=== PATIENT | female | born 1960 | race Caucasian/White ===

== ENCOUNTER 2016-07-03 10:36 | Inpatient (IN) | payer OTHER, MEDICARE ==
[~2016-07-03] VITALS: Ht 160 cm; Wt 69.1 kg
[~2016-07-03 10:36] MED LIST: ALPRAZOLAM1 MG PO; ATROVENT 0.02%2.5 ML INH; ATROVENT HFA 121 PUF INH; AZITHROMYCIN500 MG PO; DOLOPHINE10 MG PO; LABETALOL HYDR300 MG PO; PERCOCET 325 MG1 TAB PO; PREDNISONE10 MG PO; PRILOSEC 20MG C20 MG PO; PROAIR HFA0.09 MG/Ac INH; ZOFRAN ODT4 MG SL
--- NOTE | 2016-07-03 10:44 | NUR ---
PT TO ED FOR +SI THOUGHTS WITH PLAN THAT PT DOES NOT WISH TO DISCLOSE IN TRIAGE. PT DENIES HI. REPORTS "I'M ONLY HERE BECAUSE I PROMISED MY DOCTOR I WOULD COME HERE. I JUST CAN'T DO THIS ANYMORE." PT HAS HISTORY OF DEPRESSION. DOES NOT WANT ANYONE TO KNOW THAT SHE IS HERE.
--- NOTE | 2016-07-03 10:51 | NUR ---
PT TAKEN DIRECTLY BACK TO STRETCHER.
--- NOTE | 2016-07-03 11:00 | NUR ---
DR HALLMAN AT BEDSIDE
--- NOTE | 2016-07-03 11:08 | NUR ---
SECURITY AT BEDSIDE FOR WANDING. PT CHANGED INTO BLUE SCRUBS
--- NOTE | 2016-07-03 11:09 | ED PSYCHIATRIC COMPLAINT ---
History of Present Illness General Chief Complaint: Psychiatric Related Complaint Stated Complaint: +SI,DEPRESSION Source: patient, old records Exam Limitations: no limitations Vital Signs & Intake/Output Vital Signs & Intake/Output Vital Signs Date Time Temp Pulse Resp B/P B/P Pulse O2 O2 Flow FiO2 Mean Ox Delivery Rate 07/04 1702 18 96 Room Air 07/04 1700 96.6 66 18 150/83 93 / 1443 97.4 64 18 159/83 94 07/04 1148 98.1 73 18 188/78 98 Room Air 07/04 0817 96.1 62 18 168/98 94 Room Air 07/04 0800 96.8 64 20 167/87 05 0547 96.8 64 20 167/87 93 Room Air 07/03 2350 96.0 56 18 145/74 95 Room Air 07/03 2156 98.2 84 10 185/98 94 Room Air 07/03 2154 98.2 84 10 185/98 07/03 2154 98.2 84 12 185/98 ED Intake and Output 07/04 0000 07/03 1200 Intake Total Output Total Balance Patient 160 lb Weight Weight Reported by Patient Measurement Method Allergies Coded Allergies: NO KNOWN ALLERGIES (07/06/14) Triage Note: PT TO ED FOR +SI THOUGHTS WITH PLAN THAT PT DOES NOT WISH TO DISCLOSE IN TRIAGE. PT DENIES HI. REPORTS "I'M ONLY HERE BECAUSE I PROMISED MY DOCTOR I WOULD COME HERE. I JUST CAN'T DO THIS ANYMORE." PT HAS HISTORY OF DEPRESSION. DOES NOT WANT ANYONE TO KNOW THAT SHE IS HERE. Triage Nurses Notes Reviewed? yes Severity: severe HPI: Patient presents for evaluation of depression and suicide ideation. The patient states that she "felt like I couldn't go on anymore". Initially she was somewhat reluctant to admit to suicidal ideation but then stated that she went to [facility] and laid down on the street at about 3:00 this morning hoping to get run over. She states "I'm such a piece of S). She states that her family at one point piled patient of garbage in front of her place with a sign on it stating as much. (LEXX EDUARDO,JAMIE Tanner) Reconcile Medications Albuterol Sulfate (Proair Hfa) 0.09 MG/Actuation JOHAN 2 PUFF INH PRN COPD ( Reported) Alprazolam 1 MG TABLET 0 PO BID ANXIETY (Reported) Alprazolam 1 MG TABLET 1 TAB PO BIDP PRN ANXIETY (Reported) Amlodipine Besylate 5 MG TABLET 1 TAB PO DAILY CARDIAC HEALTH (Reported) Azithromycin 500 MG TAB 1 TAB PO DAILY COPD EXACERBATION THIS MEDICATION IS TO BE TAKEN ON 07/09 Ipratropium [place] (Atrovent HFA 12.9 GMS) 1 PUF PUF 2 PUF INH 4 TIMES/DAY COPD Labetalol HCl 300 MG TABLET 1 TAB PO BID CARDIAC HEALTH (Reported) Labetalol Hydrochloride 300 MG TAB 1 TAB PO BID BP (Reported) Methadone Hydrochloride (Dolophine) 10 MG TABLET 4 TAB PO TID PAIN (Reported) Methadone Hydrochloride (Methadone HCl) 10 MG TABLET 1 TAB PO TID CHRONIC PAIN (Reported) Omeprazole (Prilosec) 20 MG CAP 1 TAB PO DAILY AC GASTRTITIS Ondansetron (Zofran Odt) 4 MG ODT 1 TAB SL Q8 PRN NAUSEA OXYCODONE HCL/ACETAMINOPHEN (Percocet 10-325 MG Tablet) 325 MG/10 MG TAB 1 TAB PO Q6H PRN BREAKTHROUGH PAIN (Reported) Oxycodone HCl/Acetaminophen (Endocet 10-325 MG Tablet) 10 MG-325 MG TABLET 1 TAB PO TIDPRN PAIN (Reported) Prednisone 10 MG TAB 0 PO DAILY COPD EXACERBATION On Take 07/09-07/11 4 TABS 07/12-07/14 3 TABS 07/15-07/17 2 TABS 07/18-07/20 1 TAB THEN STOP Sevelamer Carbonate (Renvela) 800 MG TABLET 1 TAB PO TID KIDNEY HEALTH ( Reported) Sodium Polystyrene Sulfon/Sorb (Sps 15 Gm/60 Ml Suspension) 15 GRAM-20 GRAM/60 ML ORAL.SUSP KIDNEY HEALTH (Reported) (ISABELLA FRANKLIN MD) Past History Travel History Traveled to [place] past 21 day No Medical History Any Pertinent Medical History? 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 , Age 40-50. Hx Contributory? No (LEXX EDUARDO,JAMIE Tanner) Review of Systems Review of Systems Constitutional: Reports: no symptoms. EENTM: Reports: no symptoms. Respiratory: Reports: no symptoms. Cardiovascular: Reports: no symptoms. GI: Reports: no symptoms. Genitourinary: Reports: no symptoms. Musculoskeletal: Reports: no symptoms. Skin: Reports: no symptoms. Neurological/Psychological: Reports: see HPI. Hematologic/Endocrine: Reports: no symptoms. Immunologic/Allergic: Reports: no symptoms. All Other Systems: Reviewed and Negative (LEXX EDUARDO,JAMIE Tanner) Physical Exam Physical Exam General Appearance: SEE BELOW Neurological/Psychiatric: SEE BELOW Comments: General: Alert, calm, cooperative Head: Normocephalic, atraumatic Eyes: Normal inspection, no nystagmus, EOMI Ears: Normal inspection Nose: Normal inspection Throat: Moist mucosa Neck: Supple, no goiter Heart: Regular rate and rhythm, no murmurs rubs or gallops Lungs: Clear to auscultation bilaterally with good air entry Abdomen: Soft nontender nondistended, normal bowel sounds Chest: Nontender Extremities: Normal range of motion grossly, mild tremors present, no cyanosis clubbing or edema of the upper extremities Neurologic: cranial nerves II through XII grossly intact, speech clear, gait normal Psychiatric: No apparent delusions or hallucinations, no pressured speech or thought blocking, depressed affect SAD PERSONS Done? deferred to crisis (LEXX EDUARDO,JAMIE Tanner) Progress Differential Diagnosis: DEPRESSION, BIPOLAR DISORDER, SUICIDE IDEATION Plan of Care: Orders Procedure Date/time Status Renal Dialysis Diet 07/04 B Active Admit to inpatient psych 07/04 1710 Active Continuous Observation Monitor 07/04 0845 Active Continuous Observation Monitor 07/04 0839 Active Continuous Observation Monitor 07/04 0700 Active Restraint- Medical 07/04 0314 Active Continuous Observation Monitor 07/04 0300 Active Continuous Observation Monitor 07/03 2300 Active Continuous Observation Monitor 07/03 1900 Active Current Medications Sig/Maranda Start time Last Medication Dose Stop Time Status Admin Methadone HCl 40 MG TID 07/04 1600 UNVr 07/04 (Dolophine) 1554 Sevelamer Carbonate 800 MG TID 07/03 2199 UNVr 07/04 (Renvela) 1559 Sodium Polystyrene 60 ML DAILY 07/03 2056 AC 07/04 Sulfonate 0800 (Kayexalate) Amlodipine Besylate 5 MG DAILY 07/04 2055 UNVr 07/04 (Norvasc) 0800 Omeprazole 20 MG DAILY AC 07/03 1458 UNVr 07/04 (Prilosec) 0800 Comments: 07/03/2016 12:32:22 PM patient noted to be very somnolent with sonorous respirations while asleep. Oxygen saturation 85%. Narcan to be administered ( patient had a bottle of methadone pills with her). 07/03/2016 3:27:48 PM patient had a good effect with the Narcan and currently is awake alert and conversant. The speech instructor will be speaking with her momentarily. Patient is becoming increasingly agitated and having to stay in the emergency department for evaluation but given her stated history I feel she is at risk of self-harm. She is cooperative currently. 07/03/2016 6:20:24 PM RERE is being evaluated by crisis. 07/03/2016 7:26:38 PM patient signed out to Dr. franklin at shift price changer. (LEXX EDUARDO,JAMIE Tanner) Hand-Off Endorsed To: GIUSEPPE EDUARDO,MANUEL Joseph Endorsed Time: 0700 Pending: consult (crisis dispo, re eval) Comments: Reviewed Epic records. Patient contacted merchandiser retail representative and reported SI, standing in the street wishing to be hit by a car to . Methadone dosage 40mg BID not TID. Not ordered due to somnolence. (ISABELLA FRANKLIN MD) Departure Departure Condition: Stable Referrals: JUANA LEE MD (PCP/Family) Departure Forms: Customer Survey General Discharge Information (JAMIE HALLMAN MD) Departure Disposition: STILL A PATIENT Clinical Impression Primary Impression: Depression with suicidal ideation Secondary Impressions: Opiate dependence Qualifiers: Substance use status: with intoxication Complication of substance- induced condition: with delirium Qualified Code: F11.221 - Opioid dependence with intoxication delirium (ISABELLA FRANKLIN MD) Psych Admission Note Psychiatric Admission: I have seen and evaluated LANERERE. I have also reviewed all the pertinent lab results and diagnostic results. LANERERE R will be admitted to our inpatient Psychiatric unit for treatment and care. (GIUSEPPE EDUARDO,MANUEL Joseph) Opiate dependence Qualifiers: Substance use status: with intoxication Complication of substance- induced condition: with delirium Qualified Code: F11.221 - Opioid dependence with intoxication delirium (RIGOBERTO EDUARDO,ISABELLA)
--- NOTE | 2016-07-03 11:39 | NUR ---
BLOOD DRAWN AND SENT TO LAB. LAV,SST,BLUE
--- NOTE | 2016-07-03 12:09 | NUR ---
PT HAS 1 BELONGINGS BAG IN CLOSET 1 VALUABLES BAG IN ER SAFE 1 BAG OF MEDS IN PHARMACY SAFE
[2016-07-03 12:11] LABS: ABSOLUTE BASOPHIL COUNT 0 /CUMM (0.0-0.2); ABSOLUTE EOSINOPHIL COUNT 0.1 /CUMM (0.0-0.7); ABSOLUTE GRANULOCYTE CT 2.8 /CUMM (1.4-6.5); ABSOLUTE LYMPH COUNT 0.9 /CUMM (1.2-3.4); ABSOLUTE MONOCYTE COUNT 0.2 /CUMM (0.10-0.60); BASOPHIL % 0.9 % (0.0-2.0); EOSINOPHIL % 3.3 % (0-5); GRANULOCYTE % 68.8 % (42.2-75.2); HEMATOCRIT 35.3 % (37-47); MEAN CORPUSCULAR HGB 27.8 PG (27.0-31.0); MEAN CORPUSCULAR HGB CONC 32.7 G/DL (33.0-37.0); MEAN CORPUSCULAR VOLUME 85.1 FL (81.0-99.0); MEAN PLATELET VOLUME 9.7 FL (7.4-10.4); PLATELET COUNT 92 /CUMM (130-400); RBC DISTRIBUTION WIDTH 16.9 % (11.5-14.5); RED BLOOD CELL CT 4.15 /CUMM (4.20-5.40); WHITE BLOOD CELL COUNT 4.1 /CUMM (4.8-10.8)
--- NOTE | 2016-07-03 12:30 | NUR ---
PT LYING ON STRETCHER ON [address], RESPIRATIONS NOTICED TO BE LOW, COUNTED TO BE 9/MINUTE. VITALS TAKEN, O2 SAT AT 85%. DR HALLMAN MADE AWARE AND HE ORDERED 2MG OF NARCAN.
--- NOTE | 2016-07-03 12:40 | NUR ---
PT MEDICATED WITH NARCAN 2MG IN RIGHT AND LEFT DELTOID
--- NOTE | 2016-07-03 15:00 | NUR ---
PT REQUESTING TO LEAVE, ASKING FOR HER BELONGINGS, SAYING SHE IS A "PRISONER". DR HALLMAN AT BEDSIDE TO EXPLAIN TO PT THAT SHE NEEDS TO BE SEEN AND CLEARED BY CRISIS BEFORE SHE CAN BE DISCHARGED. PT STATING THAT SHE "NEEDS TO GET HER GRANDCHILDREN OFF THE BUS AND ONE IS IN A WHEELCHAIR". PT STATES THAT SHE SAW HER DOCTOR YESTERDAY AND CAME HERE FOR ANXIETY. SECURITY STANDING BY IN ED AND SITTER PRESENT.
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
--- NOTE | 2016-07-03 17:25 | NUR ---
PT MOVED TO ROOM 14. PT STILL ASKING TO LEAVE, TOLD PT THAT SHE IS NOT CLEARED FOR D/C YET. PT EXITED AREA AND WAS AT FOREIGN SERVICE OFFICER AREA, SAYING THAT SHE NEEDED TO MEET HER GRANDCHILDREN'S BUS. PT SHOUTING THAT SHE WANTS TO LEAVE AND THAT THIS RN IS A "BITCH" AND "THINKS SHE HAS POWER BUT SHE DOESN'T". PT EVENTUALLY COAXED BACK TO HER ROOM. SITTERS PRESENT AT DOOR.
--- NOTE | 2016-07-03 19:30 | NUR ---
PT MET WITH CRISIS. AWAITING DISPO PLAN
[2016-07-03] MEDS ORDERED: ENDOCET 10-3251 EACH PO (20:00)
[2016-07-03] MEDS ORDERED: METHADONE HCL10 M1 PO (20:00)
[2016-07-03] MEDS ORDERED: AMLODIPINE BESYL5 M1 PO (20:03)
[2016-07-03] MEDS ORDERED: LABETALOL HCL300 M1 PO (20:03)
[2016-07-03] MEDS ORDERED: ALPRAZOLAM1 M2 PO (20:03)
[2016-07-03] MEDS ORDERED: SPS 15 GM/15 GM/60 M (20:04)
[2016-07-03] MEDS ORDERED: RENVELA800 M1 PO (20:04)
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
--- NOTE | 2016-07-03 21:55 | NUR ---
PT MEDICATED WITH DAILY MEDS PER EMAR. PT CALMER AND MORE COOPERATIVE AT THIS TIME. SITTER AT DOOR.
--- NOTE | 2016-07-03 22:50 | NUR ---
Crisis evaluation completed. Pt requesting to be d/c. Pt was evaluated approximately 6:30pm and about 20mins into the interview she began nodding and falling asleep, she want's able to answer questions. Very tearful crying and agitated. Dr. Mir recommended looking at pt's medical condition, hold over and reevaluate. Dr. Ware reports pt was given Narcan today by Dr. Mckenna. As well pt was seen at [facility] yesterday. Pt called her Neuphrologist today and said she was standing in the street and wanted to get run over. Pt prescribed methadone and she is taking it 3x daily instead of 2x daily. pt is self medicating with the methadone. is over medicating with this medication.
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
--- NOTE | 2016-07-04 01:17 | NUR ---
PT SLEEPING, REGULAR RESPIRATIONS NOTED. SITTER REMAINS IN ATTENDANCE
--- NOTE | 2016-07-04 03:14 | NUR ---
MULTIPLE EPISODE OF PATIENT DROPPING GLASSES TO FLOOR AND BENDING OVER TO PICK THEM UP, FALLING ASLEEP WHILE BENT OVER. MULTIPLE ATTEMPTS TO GET PATIENT TO LAY DOWN IN BED UNSUCCESSFUL. PT MOVED TO [place], IS ALERT AND NOW HAS LEGS IN BED. SITTER REMAINS IN ATTENDANCE. PT NOW ARGUING WITH SITTER ABOUT LACK OF TV
--- NOTE | 2016-07-04 05:34 | NUR ---
PT SLEEPING OFF AND ON. CONTINUES TO FALL ASLEEP SITTING UP AND THEN TIPPING OVER. SITTER REMAINS IN ATTENDANCE
--- NOTE | 2016-07-04 05:50 | NUR ---
PT GIVEN MILK TO DRINK. IS CALM AND QUIET ATT HIS TIME
--- NOTE | 2016-07-04 07:56 | NUR ---
ASSUMED CARE OF PT WHO IS AWAKE AT THIS TIME. PLEASANT AND COOPERATIVE; ASKING FOR HER DAILY MEDS STATING SHE IS DUE FOR THEM NOW AND NOT AT 1000 ORDERED. ALSO STATING SHE TAKES 40MG METHADONE TID. SPOKE WITH DR CHIN, OK TO GIVE ALL MEDS AT THIS TIME - INCLUDING METHADONE. PT MEDICATED WITH SAME. DENIES NEEDING ANYTHING ELSE AT THIS TIME. NET BED UNZIPPED AND PT SITTING UP AT THIS TIME WITH NO ADDITIONAL COMPLAINTS. SITTER REMAINS PRESENT.
--- NOTE | 2016-07-04 09:59 | NUR ---
PT REMAINS CALM AND WITHOUT ANY COMPLAINTS SITTER PRESENT
--- NOTE | 2016-07-04 11:49 | NUR ---
PT WOKEN FOR VITAL SIGNS. DENIES COMPLAINTS TO THIS RN MEN'S SWIM COACH OVER TO SPEAK WITH PATIENT - INFORMED PATIENT SHE WILL LIKELY BE A BED SEARCH; PT BECAME UPSTATE STATING "I DONT UNDERSTAND, WHY CAN OTHER PEOPLE MAKE DECISIONS FOR ME. I DONT FEEL I NEED HOSPITALIZATION". PT THEN STATING "I AM NOT GOING, I WILL RUN AWAY". PT INFORMED BY THIS RN AND MEN'S SWIM COACH THAT PT WILL NOT BE ABLE TO LEAVE AT THIS TIME. PT CALM ON BED AT THIS TIME WITH SITTER PRESENT
--- NOTE | 2016-07-04 12:39 | NUR ---
PT MEDICATED WITH XANAX PER APR. TOLERATED WELL. PT AWARE SHE IS GOING TO BE EVALUATED FURTHER BY PSYCHIATRY REGARDING DISPO DENIES NEEDING ANYTHING AT THIS TIME
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
--- NOTE | 2016-07-04 14:21 | NUR ---
PT RESTING QUIETLY ON STRETCHER, REPORTING "KIDNEY PAIN" PT STATING SHE CAN WAIT UNTIL 1600 METHADONE DOSE FOR PAIN MANAGEMENT. CALM AND COOPERATIVE.
--- NOTE | 2016-07-04 14:53 | NUR ---
PT SLEEPING QUIETLY, REG RESP NOTED, NAD. WILL CTM.
--- NOTE | 2016-07-04 15:41 | NUR ---
CALLED DR. JAIDA JERRY TO CONFIRM PT'S METHADONE DOSE, PER AKUA FLORES PT GETS 40 MG TID.
--- NOTE | 2016-07-04 15:54 | NUR ---
PT MEDICATED WITH METHADONE PER EMAR
[2016-07-04 17:45] VITALS: BP 146/87
[2016-07-04 19:58] VITALS: BP 152/80
[2016-07-04] MEDS ORDERED: PROAIR HFA8.5 GM INH (21:47)
[2016-07-04] MEDS ORDERED: XANAX1 M1 PO ×2 (22:09→22:11)
[2016-07-04] MEDS ORDERED: COLACE100 M1 PO (22:12)
[2016-07-04] MEDS ORDERED: LABETALOL HCL300 M1 PO (22:19)
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
[2016-07-05 06:00] VITALS: BP 196/101
[2016-07-05 06:45] VITALS: BP 178/90
--- NOTE | 2016-07-05 06:58 | NUR ---
0615 PT. CRYING UNCONTROLLABLY "CAN NOT TAKE IT ANY MORE EMOTIONAL SUPPORT GIVEN BY MHW AND THIS RN. B/P 196/101 HR 70 AM DOSE OF NORVASC 5MG PO GIVEN AND NEUROTIN PRN ORDERED. PT. STATES "I TAKE LABETALOL BUT HAS NOT TAKEN COUPLE DAYS" RECHECKED B/P 0645 178/90 HR 72 HOD CALLED AWAITING CALL BACK. PT. QUIET "FEELING LITTLE BETTER" CRYING SUBSIDED IN TV ROOM EYES CLOSED.
[2016-07-05 08:23] VITALS: BP 134/78
[2016-07-05 12:09] VITALS: BP 133/77
--- NOTE | 2016-07-05 14:02 | NUR ---
REPORTED IN CONVERSATION OF INSURRMOUNTABLE OBSTACLES THAT LEAVE HER FEELING DEPRESSES. RESPONDED POSITIVELY TO ENCOURAGEMENT TO TAKE THINGS ONE STEP AT A TIME. mOOD IS STABLE, SUBDUED AFFECT. DENIED THOUGHTS OF SELF HARM WHEN ASKED. INTERACTING WITH PEERS ON UNIT
[2016-07-05 16:05] VITALS: BP 173/89
--- NOTE | 2016-07-05 17:07 | History & Physical ---
General Information and HPI MD Statement: I have seen and personally examined RERE SHERMAN and documented this H&P. The patient is a 56 year old F who presented with a patient stated chief complaint of suicide ideation Source of Information: patient Exam Limitations: no limitations History of Present Illness: 56-year-old female with past medical history significant for polycystic kidney disease, chronic kidney disease, asthma, COPD, history of anxiety, depression, substance abuse, chronic methadone dependence who is admitted to Inpatient Psychiatry with suicidal ideation and worsening depression. Patient claims that she has been through a lot. Her daughter 6 years ago and since then she has been feeling very overwhelmed. She claims that polycystic kidney disease runs in her family. She is almost at the verge of getting dialysis. She follows with a [facility] up in [place]. She also takes antihypertensives. She has chronic pain from her kidney disease and she takes methadone for that. Biomedical Repair Technician describes her methadone according to the patient. She currently denies any urinary complaints, no nausea, no vomiting. She denies any fevers or chills. She has some abdominal pain as well as back pain from her polycystic kidney disease which is chronic. Allergies/Medications Allergies: Coded Allergies: NO KNOWN ALLERGIES (07/06/14) Home Med list Albuterol Sulfate (Proair Hfa) 90 MCG HFA.AER.AD 2 PUFF INH Q4H PRN SHORTNESS OF BREATH (Reported) Alprazolam (Xanax) 1 MG TABLET 0.5 TAB PO QAM PRN ANXIETY (Reported) Alprazolam (Xanax) 1 MG TABLET 1 TAB PO AT BEDTIME SLEEP/ANXIETY (Reported) Amlodipine Besylate 5 MG TABLET 1 TAB PO DAILY CARDIAC HEALTH (Reported) Docusate Sodium (Colace) 100 MG CAPSULE 1 TAB PO DAILY HARD STOOL (Reported) Ipratropium [place] (Atrovent HFA 12.9 GMS) 1 PUF PUF 2 PUF INH 4 TIMES/DAY COPD Labetalol HCl 300 MG TABLET 1 TAB PO DAILY HEART HEALTH (Reported) Methadone Hydrochloride (Dolophine) 10 MG TABLET 4 TAB PO TID PAIN (Reported) Omeprazole (Prilosec) 20 MG CAP 1 TAB PO DAILY AC GASTRTITIS Ondansetron (Zofran Odt) 4 MG ODT 1 TAB SL Q8 PRN NAUSEA OXYCODONE HCL/ACETAMINOPHEN (Percocet 10-325 MG Tablet) 325 MG/10 MG TAB 1 TAB PO Q6H PRN BREAKTHROUGH PAIN (Reported) Sevelamer Carbonate (Renvela) 800 MG TABLET 1 TAB PO TID KIDNEY HEALTH ( Reported) Sodium Polystyrene Sulfon/Sorb (Sps 15 Gm/60 Ml Suspension) 15 GRAM-20 GRAM/60 ML ORAL.SUSP KIDNEY HEALTH (Reported) Past History Travel History Traveled to [place] past 21 day No Medical History Neurological: NONE EENT: NONE Cardiovascular: HYPERTENSION Respiratory: asthma, COPD Gastrointestinal: GERD, NAUSEA Hepatic: POLYCYSTIC KIDNEY DISEASE Renal: chronic kidney disease, L ARM FISTULA Musculoskeletal: NONE Psychiatric: depression, opioid dependence, substance abuse Endocrine: NONE Blood Disorders: NONE Cancer(s): NONE SCREW CUTTER/Reproductive: NONE Other Medical Hx: Polysubstance abuse History of MRSA: No History of VRE: No History of CDIFF: No Isolation History: Standard Surgical History Surgical History: fistula left upper extremity Past Family/Social History Family History Relations & Conditions if any MOTHER (polycystic kidney disease). , Age 40-50. Psychosocial History Where do you live? Home Services at Home: None ETOH Use: denies use Illicit Drug Use: denies illicit drug use Review of Systems Review of Systems Constitutional: Reports: see HPI. EENTM: Reports: see HPI. Cardiovascular: Reports: see HPI. Respiratory: Reports: see HPI. GI: Reports: see HPI. Genitourinary: Reports: see HPI. Musculoskeletal: Reports: see HPI. Skin: Reports: see HPI. Neurological/Psychological: Reports: see HPI. Exam & Diagnostic Data Last 24 Hrs of Vital Signs/I&O Vital Signs Date Time Temp Pulse Resp B/P B/P Pulse O2 O2 Flow FiO2 Mean Ox Delivery Rate 07/05 1605 72 173/89 07/05 1209 67 133/77 07/05 0823 98.2 62 134/78 07/05 0645 72 178/90 07/05 0600 70 196/101 07/05 0600 98.7 70 196/101 07/04 1958 98.1 68 152/80 07/04 1745 97.3 62 146/87 Intake & Output 07/05 1600 07/05 0800 07/05 0000 Intake Total Output Total Balance Patient 161 lb Weight Physical Exam General Appearance Alert, Oriented X3, Cooperative Skin No Rashes HEENT PERRLA Neck Supple Cardiovascular Regular Rate, Normal S1, Normal S2 Lungs Clear to Auscultation Abdomen Normal Bowel Sounds, Soft, distended and bs+ Neurological Cranial Nerves II through XII: intact Extremities trace edema Last 24 Hrs of Labs/Shoaib: Laboratory Tests 07/03 07/03 07/03 1401 1314 1311 Serology Hepatitis A IgM Ab Cancelled Hep Bs Antigen Cancelled Hep B Core IgM Ab Conf Cancelled Hepatitis C Antibody Cancelled HIV 1&2 Ab Western Blot Cancelled Toxicology Urine Opiates Screen (>2000 NG/ML) < 100.00 Methadone Screen (>300 NG/ML) > 735 H Barbiturate Screen (>200 NG/ML) < 60 Ur Phencyclidine Scrn (>25 NG/ML) < 6.00 Amphetamines Screen (>1000 NG/ML) < 100 U Benzodiazepines Scrn (>200 NG/ML) > 800 H Urine Cocaine Screen (>300 NG/ML) < 50 Urine Cannabis Screen (>50 NG/ML) 75.00 H 07/03 1138 Chemistry Sodium (137 - 145 mmol/L) 142 Potassium (3.5 - 5.1 mmol/L) 5.7 H Chloride (98 - 107 mmol/L) 112 H Carbon Dioxide (22 - 30 mmol/L) 18 L Anion Gap (5 - 16) 12 BUN (7 - 17 mg/dL) 69 H Creatinine (0.5 - 1.0 mg/dL) 3.9 H Estimated GFR (>60 ml/min) 12 L BUN/Creatinine Ratio (7 - 25 %) 17.7 Glucose (65 - 99 mg/dL) 102 H Calcium (8.4 - 10.2 mg/dL) 8.7 TSH (0.270 - 4.200 uIU/mL) 0.977 Hematology CBC w Diff MAN DIFF ORDERED WBC (4.8 - 10.8 /CUMM) 4.1 L RBC (4.20 - 5.40 /CUMM) 4.15 L Hgb (12.0 - 16.0 G/DL) 11.5 L Hct (37 - 47 %) 35.3 L MCV (81.0 - 99.0 FL) 85.1 MCH (27.0 - 31.0 PG) 27.8 RDW (11.5 - 14.5 %) 16.9 H Plt Count (130 - 400 /CUMM) 92 L MPV (7.4 - 10.4 FL) 9.7 Gran % (42.2 - 75.2 %) 68.8 Lymphocytes % (20.5 - 51.1 %) 23.0 Monocytes % (1.7 - 9.3 %) 4.0 Eosinophils % (0 - 5 %) 3.3 Basophils % (0.0 - 2.0 %) 0.9 Absolute Granulocytes (1.4 - 6.5 /CUMM) 2.8 Absolute Lymphocytes (1.2 - 3.4 /CUMM) 0.9 L Absolute Monocytes (0.10 - 0.60 /CUMM) 0.2 Absolute Eosinophils (0.0 - 0.7 /CUMM) 0.1 Absolute Basophils (0.0 - 0.2 /CUMM) 0 Platelet Estimate (ADEQUATE) DECREASED Hypochromic-Microcytic 2+ Poikilocytosis 1+ Anisocytosis 1+ PUBS MCHC (33.0 - 37.0 G/DL) 32.7 L Toxicology Serum Alcohol (<10 MG/DL) < 10.0 Assessment/Plan Assessment: 56-year-old female with past medical history significant for polycystic kidney disease, hypertension, chronic kidney disease, asthma, anxiety, depression, substance use who is admitted to Inpatient Psychiatry with worsening depression as well as suicidal ideation. Patient takes amlodipine as well as labetalol for hypertension, I will order those medications. She is already on Kayexalate as well as and well which are her nephrologic medications. She does have slightly high potassium on admission, I will repeat her labs in the morning. Psych management: I will leave that up to psychiatry. Her urine tox is positive for benzos, opiates as well as cannabis. She denies using any drugs other than methadone. She also complains of some GERD symptoms, she is on Prilosec. As Ranked By This Provider Problem List: 1. Hypertension 2. Polycystic kidney disease 3. Substance abuse 4. Anxiety 5. Depression with suicidal ideation 6. Opiate dependence Qualifiers Substance use status: with intoxication Complication of substance-induced condition: with delirium Qualified Code: F11.221 - Opioid dependence with intoxication delirium Miscellaneous Miscellaneous Documentation Attending Case Discussed With: Luz Price M.D. Primary Care Physician: JUANA LEE MD Patient sees these Specialists [facility] Level of Patient Care: Hitesh
[2016-07-05 20:09] VITALS: BP 148/95
--- NOTE | 2016-07-05 20:43 | NUR ---
PT IS VISIBLE ON UNIT, SOCIAL WITH PEERS AND COLORING IN KITCHEN. PT REPORTS FEELING MUCH BETTER THE DAY AND EVENING WENT ON. ENJOYS TALKING WITH PEERS. VERY COOPERATIVE AND COMPLIANT WITH STAFF. NO COMPLAINTS OR SI REPORTED. PT HAS A STABLE MOOD AND FULL RANGE AFFECT.
[2016-07-06 07:57] VITALS: BP 136/76
[2016-07-06 11:56] VITALS: BP 94/53
[2016-07-06 12:58] VITALS: BP 94/53
--- NOTE | 2016-07-06 13:02 | NUR ---
PT IS COMPLIANT AND COOPERATIVE WITH UNIT RULES. PT IS OUT IN COMMUNITY INTERACTING WELL WITH STAFF AND PEERS. PT IS SOCIAL WITH PEERS. PT IS ATTENDING GROUPS. PT MOOD IS STABLE WTIH A FULL RANGE AFFECT. PT DENIES SI THOUGHTS.
--- NOTE | 2016-07-06 13:35 | NUR ---
AT THE REQUEST OF DR TENORIO A NEPHROLOGY CONSULT WAS CALLED IN TO DR SHOEMAKER DUE TO CHANGE IN LAB VALUES RELATED TO KIDNEY FAILURE.
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
--- NOTE | 2016-07-06 15:26 | CP SOUTH PROGRESS NOTE PSYCH ---
Psych (Inpt) Progress Note Progress Note Include the following elements, when applicable: Involvement in the active treatment of the patient with behavioral observations of the patient and the patient's response to the treatment. Review of the ongoing treatment process in the context of the treatment plan. Indication of how multi-disciplinary staff members are carrying out the treatment plan. Plans for future interventions and recommendations for revision of the treatment plan. Liaison with other physicians/providers. Progress Note: The patient was seen for follow-up doing continuum of care. She was discussed with unit staff and seen 1:1. Patient has been up and active on the unit, interacting well with peers and staff members. She reports that her sleep had been better, she was excited that she took a shower, which had not happened in "months". She was moved by the fact that people on the unit, staff and peers, were so caring and kind with her. The patient states that she feels the medication has started to help her. She reduced depression and anxiety. She reports increased energy and motivation as well. The patient complains of twitching of her leg muscles which may be a side effect from the risperidone. We agreed to reduce risperidone to 0.5 mg at bedtime. The patient denies suicidal/homicidal ideation, auditory/visual hallucinations, she is willing to continue medication as prescribed. She was prescribed kayexalate(K reducing medication), potassium level is 4.5, within normal range. The medical doctor on dutyBruna was called, she agreed that the medication should be held until the patient has a full nephrology consult. We called the nephrology consult service, we are waiting for the consult(MD publications designer will see the patient). We will continue observation, symptom monitoring, medication management. The patient continues to require inpatient care, her stressors are still present , she still has a lot of guilt, feels unworthy of the kindness of people, doubts herself every minute, continues to feel worthless, helpless but says that she sees a "sliver of hope". She will be followed up daily.
[2016-07-06 16:12] VITALS: BP 142/87
--- NOTE | 2016-07-06 16:14 | NUR ---
seen by Dr. Christiansen municipal clerk. He offered her the option of starting dialysis tomorrow. Patient wants to think about it. Dr Hess will follow up tomorrow.
--- NOTE | 2016-07-06 16:28 | Cons- Nephrology ---
General Information and HPI Consulting Request Date of Consult: 07/06/16 Requested By: FRED EDUARDO,MAIRA Devine Reason for Consult: Stage V CKD Source of Information: patient, old records Exam Limitations: no limitations History of Present Illness: The patient is a 56-year-old woman with a past medical history most significant for stage V chronic kidney disease with a baseline creatinine of 5.4 -secondary to polycystic kidney disease - follows with Dr. Cisneros at [place], HTN, depression who presents with suicidal ideation. The patient has had progressive CKD as evidenced by her labs available in both [facility] and [facility]. SCr was 5.4 in [facility] in April. It was 3.9 on presentation here and was 4.5 when checked again today. She had an AVF placed with reported fistulogram for nonmaturation - now deemed ready for use. She complains to me of weight loss, chronic nausea/vomitting, and fatigue - sound to be unrelated to depression. She was last seen by her Attending Physician for a visit on 06/05/16 - it was noted that she did not have chronic uremic symptoms and that they would wait until her eGFR was 6cc/min prior to starting dialysis given no uremic symptoms. In speaking to the patient, she says that her mother at the age of 38 from a brain aneurysm and her sister on dialysis. She says she had never been screened for an aneurysm. She reports having 2 children with PCKD. She is on methadone for chronic pain related to her PCKD. Allergies/Medications Allergies: Coded Allergies: NO KNOWN ALLERGIES (07/06/14) Home Med List: Albuterol Sulfate (Proair Hfa) 90 MCG HFA.AER.AD 2 PUFF INH Q4H PRN SHORTNESS OF BREATH (Reported) Alprazolam (Xanax) 1 MG TABLET 0.5 TAB PO QAM PRN ANXIETY (Reported) Alprazolam (Xanax) 1 MG TABLET 1 TAB PO AT BEDTIME SLEEP/ANXIETY (Reported) Amlodipine Besylate 5 MG TABLET 1 TAB PO DAILY CARDIAC HEALTH (Reported) Docusate Sodium (Colace) 100 MG CAPSULE 1 TAB PO DAILY HARD STOOL (Reported) Ipratropium [place] (Atrovent HFA 12.9 GMS) 1 PUF PUF 2 PUF INH 4 TIMES/DAY COPD Labetalol HCl 300 MG TABLET 1 TAB PO DAILY HEART HEALTH (Reported) Methadone Hydrochloride (Dolophine) 10 MG TABLET 4 TAB PO TID PAIN (Reported) Omeprazole (Prilosec) 20 MG CAP 1 TAB PO DAILY AC GASTRTITIS Ondansetron (Zofran Odt) 4 MG ODT 1 TAB SL Q8 PRN NAUSEA OXYCODONE HCL/ACETAMINOPHEN (Percocet 10-325 MG Tablet) 325 MG/10 MG TAB 1 TAB PO Q6H PRN BREAKTHROUGH PAIN (Reported) Sevelamer Carbonate (Renvela) 800 MG TABLET 1 TAB PO TID KIDNEY HEALTH ( Reported) Sodium Polystyrene Sulfon/Sorb (Sps 15 Gm/60 Ml Suspension) 15 GRAM-20 GRAM/60 ML ORAL.SUSP KIDNEY HEALTH (Reported) Current Medications: Current Medications Sig/Maranda Start time Last Medication Dose Route Stop Time Status Admin Acetaminophen 650 MG .STK-MED ONE 07/06 0608 DC PO 07/06 0609 Acetaminophen 650 MG Q4P PRN 07/05 1600 AC 07/06 PO 0614 Amlodipine Besylate 5 MG DAILY 07/04 2055 AC 07/06 PO 0805 Gabapentin 300 MG TID 07/04 2200 AC 07/06 PO 1525 Gabapentin 200 MG Q4 HRS NEEDED PRN 07/04 2000 AC 07/05 PO 0601 Labetalol HCl 100 MG DAILY 07/07 1000 AC PO Labetalol HCl 300 MG DAILY 07/05 1800 DC 07/06 PO 0805 Lorazepam 1 MG Q1 NEEDED PRN 07/06 1545 AC PO Lorazepam 2 MG Q1 NEEDED PRN 07/06 1545 AC PO Methadone HCl 40 MG TID 07/04 1600 AC 07/06 PO 1526 Omeprazole 20 MG DAILY AC 07/03 1458 AC 07/06 PO 0614 Paroxetine HCl 10 MG 0800 07/05 0800 07/06 PO 0806 Patient Medication 1 UNIT ONE NR 07/05 1815 HI 07/05 Teaching ED 07/05 1830 2014 Risperidone 0.5 MG AT BEDTIME 07/06 2199 AC PO Risperidone 1 MG AT BEDTIME 07/04 220 HI 07/05 PO 2219 Sevelamer Carbonate 800 MG WM 07/05 0800 AC 07/06 PO 1324 Sodium Polystyrene 60 ML DAILY 07/03 2056 AC 07/05 Sulfonate PO 1015 Trazodone HCl 50 MG AT BEDTIME NEED.. 07/05 1999 PO Review of Systems Review of Systems: Complete 14 point ROS neg except as per HPI Past History Travel History Traveled to [place] past 21 day No Medical History Neurological: NONE EENT: NONE Cardiovascular: HYPERTENSION Respiratory: asthma, COPD Gastrointestinal: GERD, NAUSEA Hepatic: POLYCYSTIC KIDNEY DISEASE Renal: chronic kidney disease, L ARM FISTULA Musculoskeletal: NONE Psychiatric: depression, opioid dependence, substance abuse Endocrine: NONE Blood Disorders: NONE Cancer(s): NONE SHIFT MGR/Reproductive: NONE Other Medical Hx: Polysubstance abuse Surgical History Surgical History: fistula left upper extremity Family History Relations & Conditions If Any: MOTHER (polycystic kidney disease). , Age 40-50. Psychosocial History Where Do You Live? Home Services at Home: None ETOH Use: denies use Illicit Drug Use: denies illicit drug use Exam & Diagnostic Data Vital Signs and I&O Vital Signs Date Time Temp Pulse Resp B/P B/P Pulse O2 O2 Flow FiO2 Mean Ox Delivery Rate 07/06 1612 68 142/87 07/06 1612 68 142/87 07/06 1258 58 94/53 07/06 1156 58 94/53 07/06 0805 60 136/76 07/06 0805 60 136/76 07/06 0757 97.3 60 136/76 07/05 2014 99.1 76 18 148/95 07/05 2008 99.1 76 148/95 Intake & Output 07/06 1600 07/06 0400 07/05 0400 07/04 0400 Intake Total Output Total Balance Patient 161 lb Weight Physical Exam: Gen - anxious appearing Head - NCAT Eyes - anicteric sclera, EOMI Neck - supple, no JVD CV - RRR, no m/r/g Chest - clear b/l, no w/r/r Abd - soft, nontender Upper ext - JONNATHAN AVF good thrill and bruit Lower ext - minimal edema Skin - no rash Neuro - AOX3, grossly nonfocal Results Pertinent Lab Results: Laboratory Tests 07/06 07/06 1046 0615 Chemistry Sodium (137 - 145 mmol/L) 142 Potassium (3.5 - 5.1 mmol/L) 4.5 Chloride (98 - 107 mmol/L) 105 Carbon Dioxide (22 - 30 mmol/L) 24 Anion Gap (5 - 16) 12 BUN (7 - 17 mg/dL) 73 H Creatinine (0.5 - 1.0 mg/dL) 4.5 H Estimated GFR (>60 ml/min) 10 L BUN/Creatinine Ratio (7 - 25 %) 16.2 Urines Urine Color (YEL,AMB,STR) YEL Urine Clarity (CLEAR) HAZY H Urine pH (5.0 - 8.0) 6.0 Ur Specific [place] (1.001 - 1.035) 1.015 Urine Protein (NEG,<30 MG/DL) 100 H Urine Ketones (NEG) NEG Urine Nitrite (NEG) NEG Urine Bilirubin (NEG) NEG Urine Urobilinogen (0.1 - 1.0 EU/dl) 0.2 Ur Leukocyte Esterase (NEG) MOD H Ur Microscopic SEDIMENT EXAMINED Urine RBC (0 - 5 /HPF) 3-5 Urine WBC (0 - 2 /HPF) 5-10 H Ur Epithelial Cells (NONE,FEW) FEW Urine Bacteria (NEG/NONE) FEW H Urine Hemoglobin (NEG) MOD H Urine Glucose (N MG/DL) NEG Imaging/Other Studies: Renal U/S from 02/2015 in EPIC reviewed - innumerable cysts - unable to evaluate for hydro Assessment/Plan Assessment/Recommendations Assessment: Stage V CKD 2/2 PCKD - To me it sounds like her nausea, vomitting, fatigue, and weight loss are all c/w uremia. I think that starting dialysis would be reasonable (although not emergent) at this time. The patient was overwhelmed at this thought and wanted to think more about it and potentially speak with her Attending Physician some more. She should get a screening MRA given her reported hx of a mom who at age 38 from a brain aneurysm. Hyperphosphatemia - Renvela is a chronic med for her. Her phos was 6.7 in April - we should continue this here. Anemia - Hg 11.5. No need for BERNARD. HTN - BP controlled on current regimen. Pain - On methaone. Hyperkalemia - On chronic kayexalate. K was OK on last blood draw. She takes this 2x/week which would be reasonable to continue here. Recommendations: -Please get Hepatitis B panel with next set of labs -If patient willing, we could start dialysis during this admission - may want to get more collateral from the patient's primary Attending Physician tomorrow -OK to continue renvela - would check phos with next set of labs -OK to continue 2x/week Kayexalate; should adhere to low K diet -Cont current BP regimen -Pt should get screening MRA for a brain aneurysm Please call [phone] with ?'s
--- NOTE | 2016-07-06 16:29 | PN- Att Addend ---
Attending Addendum Attending Brief Note Called for patient complaint of urinary urgency - similar to prior UTI's. Urinalysis showing some WBC (culture pending). Upon review of chart BUN/Cr have significantly increased since admission. Nephrology saw.
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
[2016-07-06 20:25] VITALS: BP 148/77
[2016-07-06 20:32] VITALS: BP 148/77
--- NOTE | 2016-07-06 22:54 | NUR ---
PATIENT ALERT AND ORIENTED X3, DENIES S/I AT THIS TIME, NO SELF HARM STATEMENTS; PATIENT MOOD CALMER, MORE STABLE THIS EVENING, INTERACTING WELL WITH PEERS AND STAFF; PATIENT REPORTED TALKING WITH A NEPHROLOGY DOCTOR TODAY ABOUT STARTING DIALYSIS AT [place] AND THAT SHE WILL THINK ABOUT IT OVERNIGHT; PATIENT STILL RUMINATING ON FAMILY ISSUES, BUT OVERALL IS MORE STABLE.
--- NOTE | 2016-07-07 06:05 | NUR ---
PATIENT WAS BRIEFLY UP TO BATHROOM ONCE, OTHERWISE APPEARED TO SLEEP ALL NIGHT.
[2016-07-07 08:08] VITALS: BP 145/87
[2016-07-07 08:23] VITALS: BP 145/87
--- NOTE | 2016-07-07 11:08 | PN- Nephrology ---
Assessment/Plan Assessment: 1. CKD: stage 5, due to ADPCKD; at recent baseline w/o immediate dialysis imperative. Not clear if GI sx reflect depression vs uremia vs narcotics, but given improved appetitite today w/o vomiting will hold on dialysis initiation; discussed in detail w pt. Suggestion: 1. lower neurontin 300 mg q day 2. d/c Kayexalate 3. recheck labs w phos, Hep B & C serologies Subjective Subjective: Feeling better - ate this morning w/o vomiting No SOB Less depressed Objective Vital Signs and I&Os Vital Signs Date Time Temp Pulse Resp B/P B/P Pulse O2 O2 Flow FiO2 Mean Ox Delivery Rate 07/07 0855 98.1 65 18 145/87 07/07 0854 98.1 65 18 145/87 07/07 0823 65 145/87 07/07 0808 98.1 65 145/87 07/06 203 98.7 64 148/77 07/06 2025 98.7 64 148/77 07/06 1612 68 142/87 07/06 1612 68 142/87 07/06 1258 58 94/53 07/06 1156 58 94/53 Intake & Output 07/07 0400 07/06 1600 07/06 0400 07/05 1600 07/05 0400 Intake Total Output Total Balance Patient 161 lb Weight Physical Exam General Appearance: no apparent distress, alert, awake Head: atraumatic Ears, Nose, Throat: normal ENT inspection Neck: normal inspection Respiratory: normal breath sounds, no respiratory distress, quiet respiration, lungs clear Cardiovascular: regular rate/rhythm, friction rub (none) Abdomen: soft, non-tender, plpable PCK bilat Extremities: + bruit JONNATHAN AVF Neurologic/Psychiatric: awake, alert, oriented x 3, no asterixis Current Medications: Current Medications Sig/Maranda Start time Last Medication Dose Route Stop Time Status Admin Acetaminophen 650 MG Q4P PRN 07/06 1599 AC 07/06 PO 0614 Amlodipine Besylate 5 MG DAILY 07/04 2055 AC 07/07 PO 0854 Amoxicillin 250 MG BID 07/06 2199 AC 07/07 PO 07/09 2199 0854 Gabapentin 300 MG TID 07/04 2199 AC 07/07 PO 0854 Gabapentin 200 MG Q4 HRS NEEDED PRN 07/05 1999 AC 05/13 PO 0601 Labetalol HCl 100 MG DAILY 07/07 1000 AC 07/07 PO 0855 Labetalol HCl 300 MG DAILY 07/05 1800 DC 07/06 PO 0805 Lorazepam 1 MG Q1 NEEDED PRN 07/06 1545 AC PO Lorazepam 2 MG Q1 NEEDED PRN 07/06 1545 AC PO Methadone HCl 40 MG TID 07/04 1600 AC 07/07 PO 0854 Omeprazole 20 MG DAILY AC 07/03 1458 AC 07/07 PO 0644 Paroxetine HCl 10 MG 0800 07/05 0800 AC 07/07 PO 0855 Risperidone 0.5 MG AT BEDTIME 07/06 2200 AC 07/06 PO 2158 Risperidone 1 MG AT BEDTIME 07/04 2200 DC 07/05 PO 2219 Sevelamer Carbonate 800 MG WM 07/05 0800 AC 07/07 PO 0855 Sodium Polystyrene 60 ML DAILY 07/03 2056 AC 07/05 Sulfonate PO 1015 Trazodone HCl 50 MG AT BEDTIME NEED.. 07/05 1999 AC PO Results Pertinent Lab Results: Laboratory Tests 07/07 07/06 07/06 0640 1046 0615 Chemistry Sodium (137 - 145 mmol/L) 143 142 Potassium (3.5 - 5.1 mmol/L) 4.9 4.5 Chloride (98 - 107 mmol/L) 107 105 Carbon Dioxide (22 - 30 mmol/L) 22 24 Anion Gap (5 - 16) 14 12 BUN (7 - 17 mg/dL) 84 H 73 H Creatinine (0.5 - 1.0 mg/dL) 4.5 H 4.5 H Estimated GFR (>60 ml/min) 10 L 10 L BUN/Creatinine Ratio (7 - 25 %) 18.7 16.2 Urines Urine Color (YEL,AMB,STR) YEL Urine Clarity (CLEAR) HAZY H Urine pH (5.0 - 8.0) 6.0 Ur Specific Amonate (1.001 - 1.035) 1.015 Urine Protein (NEG,<30 MG/DL) 100 H Urine Ketones (NEG) NEG Urine Nitrite (NEG) NEG Urine Bilirubin (NEG) NEG Urine Urobilinogen (0.1 - 1.0 EU/dl) 0.2 Ur Leukocyte Esterase (NEG) MOD H Ur Microscopic SEDIMENT EXAMINED Urine RBC (0 - 5 /HPF) 3-5 Urine WBC (0 - 2 /HPF) 5-10 H Ur Epithelial Cells (NONE,FEW) FEW Urine Bacteria (NEG/NONE) FEW H Urine Hemoglobin (NEG) MOD H Urine Glucose (N MG/DL) NEG Imaging/Other Studies: US: 1. Enlarged liver with innumerable cysts. 2. Enlarged right kidney with innumerable cysts. 3. Dilated common bile duct without filling defects. 4. No gallstones. CXR: Normal chest. No evidence of pneumonia.
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
--- NOTE | 2016-07-07 11:13 | SOCIAL WORKER TX PLAN PSYCH ---
Treatment Plan - Please Document: - Evidence that there is ongoing collaboration between - the patient and the interdisciplinary team, - including the patient's active participation and - responsibility for engaging in the treatment regimen, - and that the treatment plan is individualized and - relevant to the patient's conditions. - Treatment plan should reflect documentation indicating - that all active therapeutic efforts are included. Strengths/Capabilities: The patient is on disability, has stable housing and a supportive network. Physical Limitations (Interventions): None noted Patient Identified Trmt Goals: To deal with my depression and anxiety Discharge Plan: [facility] IOP or OPS Problem/Goals #1 Problem #1: suicidal ideation Goal (Short Term): Maintain safety on unit (15min checks), verbalize feelings to staff, idenitfy 1- 2 triggers to SI, Depression, and 1-2 coping skills. Attend groups and be visible in millieu. Goal (Senior Living): Report no SI, mood stable, attend after-care treatment. Interventions: Individual therapy daily, group therapy, MD appt for medication daily, family meeting Modalities: CBT, DBT, MA modalities, accupuncture, activity groups, SA/MH groups. Problem/Goals #2 Problem #2: Cannibis Use Disorder Goal (Short Term): Identify 1-2 triggers for use of Cannibis, 1-2 ways alternative ways to cope with stressors. Attend all SA groups, verbalize pros/cons to drug use and impact on life, discuss 1:1 and in groups, with prescriber. Goal (Senior Living): Maintain abstinence, use relapse prevention plan in daily life, sober/clean supports, AA/NA and follow-up with aftercare plan. Interventions: Individual therapy daily, group therapy, MD appt for medication daily, family meeting Modalities: CBT, DBT, MA modalities, accupuncture, activity groups, SA/MH groups. DSM5/PS Stressors/Medical Prob Diagnosis' (DSM 5, Stressors, Medical): F32.9 Depressive Disorder Unspecified F41.9 Unspecified Anxiety Disorder F12.20 Cannibis Use Disorder Moderate, F11.20 Opioid Use Disorder Moderate, F43.10 PTSD Unspecified Medical Condition, Polycystic Kidney Disease, HTN, Family Discord, Disabled Current GAF: 25 Treatment Team - Responsibilities of members of the treatment team include: - Medication Management- MD or PADDED PRODUCTS FINISHER - Medication Administration and Monitoring- Nurse - Group Therapy- Occupational Therapist - 1:1 Therapy,Disch Planning,family involvement-Uppers Edge Burnisher
[2016-07-07 12:25] VITALS: BP 156/88
[2016-07-07 12:28] VITALS: BP 156/88
--- NOTE | 2016-07-07 12:57 | NUR ---
PT IS COMPLIANT AND COOPERATIVE. MOOD IS STABLE WITH A CONSTRICTED AFFECT. PT DENIES SI AT THIS TIME, C/O CHRONIC PAIN. PT HAS EXPRESSED FEELING ANXIOUS AROUND MAKING A DECISION TO WHEN TO START DIALYSIS. PT IS PRESENT ON THE UNIT AND INTERACTING WELL WITH PEERS AND STAFF. PT IS ATTENDING GROUPS. NO S/S OF DETOX NOTED OR REPORTED, NO SCORING IN CIWA. VITALS ARE STABLE, APPETITE IS GOOD.
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
[2016-07-07 19:38] VITALS: BP 160/79
[2016-07-07 19:59] VITALS: BP 160/79
--- NOTE | 2016-07-07 21:27 | NUR ---
PT IS VISIBLE ON UNIT, VERY SOCIAL WITH PEERS AND STAFF. COOPERATIVE AND COMPLIANT. ATTENDED WRAP UP MEETING AND PARTICIPATED. PT HAS BEEN PROVIDING SUPPORT TO PEERS AND REPORTS BEING VERY MOTIVATED IN TREATMENT. NO COMPLAINTS OR SI REPORTED. PT HAS A STABLE MOOD AND FULL RANGE AFFECT.
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
[2016-07-08 07:56] VITALS: BP 139/69
[2016-07-08 08:23] VITALS: BP 139/69
--- NOTE | 2016-07-08 09:00 | PN- Nephrology ---
Assessment/Plan Assessment: 1. CKD: stage 5, due to ADPCKD; still w/o immediate dialysis imperative. Suspect some of GI sx related to large PCKs & depression but discussed dialysis initiation depending on course over next couple days 2. Lower UTI: C&S >100K gram + cocci --> on ampicillin as await sensitivities Suggestion: Recheck labs in AM Subjective Subjective: Eating w/o gross uremic sx here No SOB C/O abd fullness & disconfort related to large polycystic kidneys Objective Vital Signs and I&Os Vital Signs Date Time Temp Pulse Resp B/P B/P Pulse O2 O2 Flow FiO2 Mean Ox Delivery Rate 07/08 0823 97.9 66 139/69 / 0800 97.9 66 18 139/69 / 0759 97.9 66 18 139/69 / 0756 97.9 66 139/69 / 1959 98.2 64 160/79 / 1938 98.2 64 160/79 07/07 1228 68 156/88 07/07 1225 68 156/88 07/07 0855 98.1 65 18 145/87 07/07 0854 98.1 65 18 145/87 Physical Exam General Appearance: no apparent distress, alert Head: atraumatic, normal appearance Neck: normal inspection Respiratory: quiet respiration, lungs clear Cardiovascular: regular rate/rhythm, friction rub (none) Abdomen: distention, large PCK bilat Extremities: + bruit JONNATHAN AVF Neurologic/Psychiatric: awake, alert, no asterixis Current Medications: Current Medications Sig/Maranda Start time Last Medication Dose Route Stop Time Status Admin Acetaminophen 650 MG Q4P PRN 07/05 1600 AC 07/06 PO 0614 Amlodipine Besylate 5 MG DAILY 07/04 2055 AC 07/08 PO 0759 Amoxicillin 250 MG BID 07/06 2199 AC 07/08 PO 07/09 2199 0759 Aripiprazole 2 MG 2200 07/07 220 AC 07/07 PO 220 Gabapentin 300 MG DAILY 07/08 1000 CAN PO Gabapentin 300 MG TID 07/04 2199 DC 07/07 PO 0854 Gabapentin 200 MG Q4 HRS NEEDED PRN 07/04 2000 DC 07/05 PO 0601 Labetalol HCl 100 MG DAILY 07/07 1000 AC 07/08 PO 0800 Lorazepam 2 MG Q4P PRN 07/07 1645 AC 07/07 PO 2300 Lorazepam 1 MG Q1 NEEDED PRN 07/06 1545 AC PO Lorazepam 2 MG Q1 NEEDED PRN 07/06 1545 AC PO Methadone HCl 40 MG TID 07/04 1600 AC 07/08 PO 0801 Omeprazole 20 MG DAILY AC 07/03 1458 AC 07/08 PO 0759 Paroxetine HCl 20 MG 0800 07/08 0800 AC PO Paroxetine HCl 10 MG 0800 07/05 0800 DC 07/07 PO 0855 Risperidone 0.5 MG Q4H PRN 07/07 1200 DC PO Risperidone 0.5 MG AT BEDTIME 07/06 2200 DC 07/06 PO 2158 Sevelamer Carbonate 800 MG WM 07/05 0800 AC 07/08 PO 0759 Sodium Polystyrene 60 ML DAILY 07/03 2056 DC 07/05 Sulfonate PO 1015 Trazodone HCl 50 MG AT BEDTIME NEED.. 07/05 1999 AC PO Results Pertinent Lab Results: Laboratory Tests 07/08 07/08 07/07 0613 0613 0640 Chemistry Sodium (137 - 145 mmol/L) 139 143 Potassium (3.5 - 5.1 mmol/L) 5.0 4.9 Chloride (98 - 107 mmol/L) 107 107 Carbon Dioxide (22 - 30 mmol/L) 19 L 22 Anion Gap (5 - 16) 12 14 BUN (7 - 17 mg/dL) 96 H 84 H Creatinine (0.5 - 1.0 mg/dL) 4.7 H 4.5 H Estimated GFR (>60 ml/min) 10 L 10 L BUN/Creatinine Ratio (7 - 25 %) 20.4 18.7 Hemoglobin A1c (4.2 - 5.8 %) Pending Phosphorus (2.5 - 4.5 mg/dL) 7.2 H Total Bilirubin (0.2 - 1.3 mg/dL) 0.4 Direct Bilirubin (< 0.4 mg/dL) 0.3 AST (14 - 36 U/L) 28 ALT (9 - 52 U/L) 25 Alkaline Phosphatase (<127 U/L) 84 Total Protein (6.3 - 8.2 g/dL) 6.6 Albumin (3.5 - 5.0 g/dL) 3.9 3.8 Triglycerides (<150 mg/dL) 77 Cholesterol (<200 MG/DL) 179 LDL Cholesterol, Calc (65 - 129 mg/dL) 103 HDL Cholesterol (40 - 60 mg/dL) 61 H Cholesterol/HDL Ratio (0.00 - 4.23 %) 3 Vitamin B12 (239 - 931 pg/mL) Pending Folate (2.76 - 20.0 ng/mL) Pending Free T4 (0.64 - 1.79 ng/dL) Pending Thyroxine (T4) (4.5 - 10.9 ug/dL) Pending Serology Hep Bs Antigen (NONREACTIVE) NONREACTIVE Hep Bs Antibody (NONREACTIVE) NONREACTIVE Hepatitis C Antibody (NONREACTIVE) NONREACTIVE 07/06 07/06 1046 0682 Chemistry Sodium (137 - 145 mmol/L) 142 Potassium (3.5 - 5.1 mmol/L) 4.5 Chloride (98 - 107 mmol/L) 105 Carbon Dioxide (22 - 30 mmol/L) 24 Anion Gap (5 - 16) 12 BUN (7 - 17 mg/dL) 73 H Creatinine (0.5 - 1.0 mg/dL) 4.5 H Estimated GFR (>60 ml/min) 10 L BUN/Creatinine Ratio (7 - 25 %) 16.2 Urines Urine Color (YEL,AMB,STR) YEL Urine Clarity (CLEAR) HAZY H Urine pH (5.0 - 8.0) 6.0 Ur Specific Haw[place] (1.001 - 1.035) 1.015 Urine Protein (NEG,<30 MG/DL) 100 H Urine Ketones (NEG) NEG Urine Nitrite (NEG) NEG Urine Bilirubin (NEG) NEG Urine Urobilinogen (0.1 - 1.0 EU/dl) 0.2 Ur Leukocyte Esterase (NEG) MOD H Ur Microscopic SEDIMENT EXAMINED Urine RBC (0 - 5 /HPF) 3-5 Urine WBC (0 - 2 /HPF) 5-10 H Ur Epithelial Cells (NONE,FEW) FEW Urine Bacteria (NEG/NONE) FEW H Urine Hemoglobin (NEG) MOD H Urine Glucose (N MG/DL) NEG
--- NOTE | 2016-07-08 11:25 | SOCIAL WORKER PROG NOTE PSYCH ---
Social Work Progress Note Progress Note Met with Lilia Moura) today. She stated she didn't sleep well last night - "alot going on the unit last night." She appeared sedated was falling asleep in mid sentence. She also appeared to be sedated in group today - falling asleep. Lilia said she is "finally able to relax" and that is why she is tired. Asked if any meds from someone else, she denied. She denied SI/HI, no psychosis. She is willing to attend [facility], need to clarify which program since she is prescribed Methadone (for pain) by her Kidney MD, per Lilia's report. Plan to discuss further with Dr. Cruz.
[2016-07-08 12:29] VITALS: BP 135/71
[2016-07-08 12:32] VITALS: BP 135/71
--- NOTE | 2016-07-08 13:12 | NUR ---
PT IS COMPLIANT AND COOPERATIVE. MOOD IS STABLE WITH A CONSTRICTED AND ANXIOUS AFFECT. PT EXPRESSED FEELING ANXIOUS ABOUT SOME ODD MUSCLE MOVMENTS AND FREQUENTLY DROPPING ITEMS. PT DENIES SI AT THIS TIME. PT IS PRESENT ON THE UNIT AND INTERACTING WELL WITH PEERS AND STAFF. PT IS ATTENDING GROUPS. VITALS ARE STABLE, APPETITE IS GOOD.
[2016-07-08 16:24] VITALS: BP 131/74
[2016-07-08 16:30] VITALS: BP 131/74
--- NOTE | 2016-07-08 16:52 | CP SOUTH PROGRESS NOTE PSYCH ---
Psych (Inpt) Progress Note Progress Note Include the following elements, when applicable: Involvement in the active treatment of the patient with behavioral observations of the patient and the patient's response to the treatment. Review of the ongoing treatment process in the context of the treatment plan. Indication of how multi-disciplinary staff members are carrying out the treatment plan. Plans for future interventions and recommendations for revision of the treatment plan. Liaison with other physicians/providers. Progress Note: PSYCHIATRIST NOTE, 07/08/2016: I discussed this patient's progress to date, current mental status, treatment and discharge planning with staff team today in the daily morning ITTM and also met with her again myself in individual session. Patient has been noted by staff to appear sedated off and on and indeed with me today she very briefly nodded out sitting in a chair, at times in the middle of a sentence. Her renal functions have been trending steadily upwards since 07/03/2016, with creatinine then of 3.9, increasing to 4.5 and today 4.7; BUN then 69, rising to 73, 84 and today 96; scabbler, Dr. Rainey, is following patient closely, wanting to see if improvement in her depression/mental state might have some positive impact on her degree of renal failure. Given patient's drowsy state at this time she and I have decided to refer making any further increase in current low dose Paxil rx. I have also switched from low dose Risperdal to very low dose Abilify for racing thoughts and as augmentation for the SSRI, hoping the latter will prove less sedating as well; she was switched from Risperdal, 0.5mg to Abilify, 2mg HS last night. I am also tapering/discontinuing the CIWA-linked Ativan, as patient received one 2mg dose of Ativan for elevated CIWA at about 5pm yesterday, 07/07/2016, which could have contributed to the extent of sedation overnight/today.
--- NOTE | 2016-07-08 20:44 | NUR ---
PT IS CALM, COOPERATIVE WITH STAFF AND PEERS, AND COMPLIANT WITH UNIT RULES. PT IS OFTEN IN [place], INTERACING WELL WITH OTHERS. PT APPEARS SLIGHTLY LETHARGIC WHILE IN [place] AT TIMES. MOOD IS STABLE, AFFECT APPEARS EUTHYMIC TO FULL RANGE, COMMUNICATION IS ORGANIZED AND APPEARS NORMAL IN ALL RESPECTS, AND APPETITE IS NORMAL. PT DENIES SI AT THIS TIME.
[2016-07-09] VITALS (8 sets, daily range): BP systolic 135–153; BP diastolic 62–76
--- NOTE | 2016-07-09 05:33 | NUR ---
PT MORE ISOLATED LESS VISIBLE ON EVENINGS. SHE IS WORRIED STAFF FEEL SHE MAY HAVE TAKEN CHEEKED MEDS. PT SLEPT.
--- NOTE | 2016-07-09 11:01 | PN- Nephrology ---
Assessment/Plan Assessment: 1. CKD: stage 5, due to ADPCKD; no immediate dialysis imperative. 2. Lower UTI: enterococcus sensitive to ampicillin --> lower to qday to complete course Suggestion: 1. lower amoxicillin q day & d/c post today's dose 2. recheck labs today & tomorrow Subjective Subjective: Eating w/o nausea or vomiting Still depressed - crying at times per pt More somnolent on mult psych meds No labs drawn today Objective Vital Signs and I&Os Vital Signs Date Time Temp Pulse Resp B/P B/P Pulse O2 O2 Flow FiO2 Mean Ox Delivery Rate 07/09 0907 98.0 71 18 07/09 0907 98.0 71 18 150/76 07/09 0757 98.0 71 150/76 07/09 0743 98.0 71 150/76 07/08 1630 69 131/74 07/08 1624 69 131/74 07/08 1232 72 135/71 07/08 1229 72 135/71 Physical Exam General Appearance: well developed/nourished, no apparent distress, alert Head: atraumatic, normal appearance Neck: normal inspection Respiratory: no respiratory distress, lungs clear Cardiovascular: regular rate/rhythm, friction rub (none) Abdomen: soft, PC kidneys nontender to palp Extremities: pedal edema, + bruit L arm AVF Neurologic/Psychiatric: awake, alert, no asterixis Current Medications: Current Medications Sig/Maranda Start time Last Medication Dose Route Stop Time Status Admin Acetaminophen 650 MG Q4P PRN 07/05 1600 AC 07/06 PO 0614 Amlodipine Besylate 5 MG DAILY 07/04 2055 AC 07/09 PO 09 Amoxicillin 250 MG BID 07/06 2199 AC 07/09 PO 07/09 2200 09 Aripiprazole 2 MG 07/07 AC 07/08 PO 2133 Labetalol HCl 100 MG DAILY 07/07 1000 AC 07/09 PO 0907 Lorazepam 1 MG Q1 NEEDED PRN 07/08 1645 DC PO Lorazepam 2 MG Q4P PRN 07/07 1645 DC 07/07 PO 2300 Lorazepam 1 MG Q1 NEEDED PRN 07/06 1545 DC PO Lorazepam 2 MG Q1 NEEDED PRN 07/06 1545 DC 07/08 PO 1407 Methadone HCl 40 MG TID 07/04 1600 AC 05/17 PO 0907 Omeprazole 20 MG DAILY AC 07/03 1458 AC 07/09 PO 0639 Paroxetine HCl 20 MG 0800 07/08 0800 AC 07/09 PO 0907 Sevelamer Carbonate 800 MG WM 07/05 0800 AC 07/09 PO 0907 Trazodone HCl 50 MG AT BEDTIME NEED.. 07/05 1999 AC PO Results Pertinent Lab Results: Laboratory Tests 07/08 07/08 07/07 07/07 0613 0613 1300 0640 Chemistry Sodium (137 - 145 mmol/L) 139 143 Potassium (3.5 - 5.1 mmol/L) 5.0 4.9 Chloride (98 - 107 mmol/L) 107 107 Carbon Dioxide (22 - 30 mmol/L) 19 L 22 Anion Gap (5 - 16) 12 14 BUN (7 - 17 mg/dL) 96 H 84 H Creatinine (0.5 - 1.0 mg/dL) 4.7 H 4.5 H Estimated GFR (>60 ml/min) 10 L 10 L BUN/Creatinine Ratio (7 - 25 %) 20.4 18.7 Hemoglobin A1c (4.2 - 5.8 %) 5.3 Phosphorus (2.5 - 4.5 mg/dL) 7.2 H Total Bilirubin (0.2 - 1.3 mg/dL) 0.4 Direct Bilirubin (< 0.4 mg/dL) 0.3 AST (14 - 36 U/L) 28 ALT (9 - 52 U/L) 25 Alkaline Phosphatase (<127 U/L) 84 Total Protein (6.3 - 8.2 g/dL) 6.6 Albumin (3.5 - 5.0 g/dL) 3.9 3.8 Triglycerides (<150 mg/dL) 77 Cholesterol (<200 MG/DL) 179 LDL Cholesterol, Calc (65 - 129 mg/dL) 103 HDL Cholesterol (40 - 60 mg/dL) 61 H Cholesterol/HDL Ratio (0.00 - 4.23 %) 3 Vitamin B12 (239 - 931 pg/mL) 862 Folate (2.76 - 20.0 ng/mL) 3.7 Free T4 (0.64 - 1.79 ng/dL) 0.82 Thyroxine (T4) (4.5 - 10.9 ug/dL) 5.0 Serology Hep Bs Antigen (NONREACTIVE) NONREACTIVE Hep Bs Antibody (NONREACTIVE) NONREACTIVE Hepatitis C Antibody (NONREACTIVE) NONREACTIVE Toxicology Methadone Screen Cancelled Barbiturate Screen Cancelled Ur Phencyclidine Scrn Cancelled Amphetamines Screen Cancelled U Benzodiazepines Scrn Cancelled Urine Cocaine Screen Cancelled Urine Cannabis Screen Cancelled
--- NOTE | 2016-07-09 12:07 | SOCIAL WORKER PROG NOTE PSYCH ---
Social Work Progress Note Progress Note Discussed Lilia with Dr. Cruz today. Met with Lilia she was in the kitchen eating her dinner. She is on 1:1 for her safety, appears to be falling asleep, havingdifficulty keeping her eyes open. Sheis unsteady. When I speak to her she hears me and responds clearly, but can be disorganized. Asked Lilia if we can include family in her care, she continues to refuse stating "I have put them through enough." She did not report any SI/HI, and no evidence of psychosis. Informed Lilia that another 7th grade social studies teacher, Nereyda Pierce LCSW will be meeting with her tomorrow.
[2016-07-09 12:37] LABS: ABSOLUTE BASOPHIL COUNT 0 /CUMM (0.0-0.2); ABSOLUTE EOSINOPHIL COUNT 0.1 /CUMM (0.0-0.7); ABSOLUTE GRANULOCYTE CT 2.8 /CUMM (1.4-6.5); ABSOLUTE LYMPH COUNT 1.2 /CUMM (1.2-3.4); ABSOLUTE MONOCYTE COUNT 0.3 /CUMM (0.10-0.60); BASOPHIL % 0.4 % (0.0-2.0); EOSINOPHIL % 3.2 % (0-5); GRANULOCYTE % 62.9 % (42.2-75.2); HEMATOCRIT 31.8 % (37-47); MEAN CORPUSCULAR VOLUME 84.8 FL (81.0-99.0); MEAN PLATELET VOLUME 9.7 FL (7.4-10.4); RBC DISTRIBUTION WIDTH 16.2 % (11.5-14.5); RED BLOOD CELL CT 3.75 /CUMM (4.20-5.40); WHITE BLOOD CELL COUNT 4.5 /CUMM (4.8-10.8)
[2016-07-09 13:04] LABS: PLATELET COUNT 79 /CUMM (130-400)
--- NOTE | 2016-07-09 13:13 | NUR ---
PT IS EXTREMELY LETHARGIC, FALLING ASLEEP IN THE COMMUNITY EATING LUNCH, MID CONVERSATION WITH PEERS, CLEANING THE KITCHEEN. PT REQUIRES REDIRECTION TO GO LAY DOWN AND WILL DO SO FOR A SHORT PERIOD OF TIME AND COME RIGHT BACK OUT IN THE COMMUNITY AND FALL ASLEEP AGAIN. SHE IS CALM, COOPERATIVE, COMPLIANT. ATTENDING GROUPS. VS ARE STABLE AND DENIES ANY SI/HI TO THIS MHW.
--- NOTE | 2016-07-09 15:51 | CP SOUTH PROGRESS NOTE PSYCH ---
Psych (Inpt) Progress Note Progress Note Include the following elements, when applicable: Involvement in the active treatment of the patient with behavioral observations of the patient and the patient's response to the treatment. Review of the ongoing treatment process in the context of the treatment plan. Indication of how multi-disciplinary staff members are carrying out the treatment plan. Plans for future interventions and recommendations for revision of the treatment plan. Liaison with other physicians/providers. Progress Note: PSYCHIATRIST NOTE, 07/09/2016: I discussed this patient's progress to date, current mental status, treatment and discharge planning with staff team today in the daily morning ITTM and also met with her again myself in individual session. I also spoke with her consulting renal specialist, Dr. Avery Rainey ([phone]) today; he is now concerned that with the way her labs/renal functions are trending patient may have to begin hemodialysis within the next 1-2 weeks, if not sooner. I discussed with him our concerns with patient's periods of profound drowsiness/ brief intervals of falling asleep during the day; I noted this had happened 2-3 times just yesterday when I was meeting with her in individual session and despite her obvious efforts to keep from dozing; I also emphasized that I have been keeping psychotropic medications to a minimum in effort to not contribute to the above, but though she is currently on less psych medication than earlier during admission she is more near to somnolence during the day at this time. When I met with patient this afternoon in individual session she again several times nearly fell asleep or did so momentarily but managed to quickly rouse herself; she is well aware of and understandably concerned about this level of sedation. I am worried she is becoming more of a fall risk and have now placed her on 1:1 sitter for this issue. I also plan to move her low dose Paxil (20mg/day) from 8am to 5pm tomorrow on the chance that even this dose of an SSRI might be contributing to her daytime difficulties in avoiding temporary unconsciousness. Patient continues to be anxious, overworried that she is somehow not doing the right thing or that we are upset with her about something. She denies racing thoughts at this time, and there is no evidence of psychotic thought processes/psychosis. She appears a little less depressed though rather befuddled, the latter contributed to by her waxing and waning level of mental acuity/wakefulness.
--- NOTE | 2016-07-09 15:52 | NUR ---
DR. WOLFE'S OFFICE CALLED CPS BACK AND INFORMED US THAT MD SAW THE PT'S LABS FROM TODAY AND AWARE & ORDER PLACED FOR KAYEXALATE AND NO FURTHER ORDERS BESIDES THIS AT THIS TIME.
--- NOTE | 2016-07-09 21:06 | NUR ---
PT IS ISOLATIVE AND WITHDRAWN, SLEEPING IN BED FOR MAJORTIY OF EVENING. MINIMAL INTERACTION WITH PEERS OR STAFF. WHEN PT WAS AWOKEN FOR 2000 VITAL SIGNS, SHE PRESENTED CONFUSED AND LETHARGIC. PT HAD A HARD TIME STAYING AWAKE TO ANSWER QUESTIONS BUT IS OVERALL COOPERATIVE AND COMPLIANT. NO COMPLAINTS OR SI REPORTED. PT HAS A STABLE MOOD AND FLAT AFFECT.
[2016-07-10] VITALS (8 sets, daily range): BP systolic 138–186; BP diastolic 72–81
--- NOTE | 2016-07-10 06:41 | NUR ---
PATIENT SLEPT MOST OF THE NIGHT, BUT WAS AWAKE AFTER 0420 AFTER AN EPISODE OF URINARY INCONTINENCE; 1:1 SITTER MONITORING AT ALL TIMES, PATIENT GAIT STILL SLIGHTLY UNSTEADY, SITTER AND STAFF MONITORING PATIENT FOR FALL RISK.
--- NOTE | 2016-07-10 08:53 | PN- Nephrology ---
Assessment/Plan Assessment: CKD: stage 5, due to ADPCKD; although BUN/Cr/GFR stable concerned developing uremic encephalopathy & advised HD start --> pt agreeable Suggestion: HD today today & daily next several days Subjective Subjective: Eating w/o vomiting but nausea back More somnolent depite lowering psych meds Objective Vital Signs and I&Os Vital Signs Date Time Temp Pulse Resp B/P B/P Pulse O2 O2 Flow FiO2 Mean Ox Delivery Rate 07/10 0801 97.0 63 140/72 07/10 0759 97.0 63 140/72 07/09 1953 97.3 64 153/76 07/09 1947 97.3 64 153/76 07/09 1556 68 142/62 07/09 1553 68 142/62 07/09 1235 66 135/70 07/09 1217 66 135/70 07/09 0907 98.0 71 18 07/09 0907 98.0 71 18 150/76 Physical Exam General Appearance: no apparent distress, alert Head: atraumatic, normal appearance Ears, Nose, Throat: normal ENT inspection Neck: normal inspection Respiratory: no respiratory distress, quiet respiration, lungs clear Cardiovascular: regular rate/rhythm, friction rub (no rub) Abdomen: non-tender, polycystic kidneys Extremities: + bruit L arm AVF Neurologic/Psychiatric: awake, alert, + 1 beat asterixis Current Medications: Current Medications Sig/Maranda Start time Last Medication Dose Route Stop Time Status Admin Acetaminophen 650 MG Q4P PRN 07/05 1600 AC 07/06 PO 0614 Amlodipine Besylate 5 MG DAILY 07/03 205 AC 07/09 PO 0907 Amoxicillin 250 MG BID 07/06 2199 DC 07/09 PO 07/09 220 0907 Aripiprazole 2 MG Q6P PRN 07/09 1600 AC PO Aripiprazole 2 MG 2200 07/07 2200 AC 07/09 PO 2143 Labetalol HCl 100 MG DAILY 07/07 1000 AC 07/09 PO 0907 Lorazepam 1 MG Q1 NEEDED PRN 07/08 164 DC PO Lorazepam 2 MG Q4P PRN 07/07 164 DC 07/07 PO 2300 Melatonin 3 MG AT BEDTIME NEED.. 07/09 1545 AC 07/09 PO 2350 Methadone HCl 40 MG TID 07/04 1600 AC 07/09 PO 2144 Omeprazole 20 MG DAILY AC 07/03 1458 AC 07/10 PO 0604 Paroxetine HCl 20 MG 1700 07/10 1700 AC PO Paroxetine HCl 20 MG 0800 07/08 0800 DC 07/09 PO 0907 Sevelamer Carbonate 800 MG WM 07/05 0800 AC 07/09 PO 1641 Sodium Polystyrene 60 ML ONCE ONE 07/09 1600 DC 07/09 Sulfonate PO 07/09 1601 1640 Trazodone HCl 50 MG AT BEDTIME NEED.. 07/05 1999 DC PO Results Pertinent Lab Results: Laboratory Tests 07/10 07/09 07/09 0553 1115 1115 Chemistry Sodium (137 - 145 mmol/L) 139 Cancelled 138 Potassium (3.5 - 5.1 mmol/L) 4.8 Cancelled 5.5 H Chloride (98 - 107 mmol/L) 107 Cancelled 106 Carbon Dioxide (22 - 30 mmol/L) 20 L Cancelled 20 L Anion Gap (5 - 16) 12 Cancelled 12 BUN (7 - 17 mg/dL) 98 H Cancelled 100 H Creatinine (0.5 - 1.0 mg/dL) 4.5 H Cancelled 4.8 H Estimated GFR (>60 ml/min) 10 L 9 L BUN/Creatinine Ratio (7 - 25 %) 21.8 Cancelled 20.8 Phosphorus (2.5 - 4.5 mg/dL) 7.5 H Hematology CBC w Diff NO MAN DIFF REQ WBC (4.8 - 10.8 /CUMM) 4.5 L RBC (4.20 - 5.40 /CUMM) 3.75 L Hgb (12.0 - 16.0 G/DL) 10.5 L Hct (37 - 47 %) 31.8 L MCV (81.0 - 99.0 FL) 84.8 MCH (27.0 - 31.0 PG) 28.0 RDW (11.5 - 14.5 %) 16.2 H Plt Count (130 - 400 /CUMM) 79 L MPV (7.4 - 10.4 FL) 9.7 Gran % (42.2 - 75.2 %) 62.9 Lymphocytes % (20.5 - 51.1 %) 26.2 Monocytes % (1.7 - 9.3 %) 7.3 Eosinophils % (0 - 5 %) 3.2 Basophils % (0.0 - 2.0 %) 0.4 Absolute Granulocytes (1.4 - 6.5 /CUMM) 2.8 Absolute Lymphocytes (1.2 - 3.4 /CUMM) 1.2 Absolute Monocytes (0.10 - 0.60 /CUMM) 0.3 Absolute Eosinophils (0.0 - 0.7 /CUMM) 0.1 Absolute Basophils (0.0 - 0.2 /CUMM) 0 PUBS MCHC (33.0 - 37.0 G/DL) 33.0 07/08 07/08 07/07 0613 0613 1300 Chemistry Sodium (137 - 145 mmol/L) 139 Potassium (3.5 - 5.1 mmol/L) 5.0 Chloride (98 - 107 mmol/L) 107 Carbon Dioxide (22 - 30 mmol/L) 19 L Anion Gap (5 - 16) 12 BUN (7 - 17 mg/dL) 96 H Creatinine (0.5 - 1.0 mg/dL) 4.7 H Estimated GFR (>60 ml/min) 10 L BUN/Creatinine Ratio (7 - 25 %) 20.4 Hemoglobin A1c (4.2 - 5.8 %) 5.3 Total Bilirubin (0.2 - 1.3 mg/dL) 0.4 Direct Bilirubin (< 0.4 mg/dL) 0.3 AST (14 - 36 U/L) 28 ALT (9 - 52 U/L) 25 Alkaline Phosphatase (<127 U/L) 84 Total Protein (6.3 - 8.2 g/dL) 6.6 Albumin (3.5 - 5.0 g/dL) 3.9 Triglycerides (<150 mg/dL) 77 Cholesterol (<200 MG/DL) 179 LDL Cholesterol, Calc (65 - 129 mg/dL) 103 HDL Cholesterol (40 - 60 mg/dL) 61 H Cholesterol/HDL Ratio (0.00 - 4.23 %) 3 Vitamin B12 (239 - 931 pg/mL) 862 Folate (2.76 - 20.0 ng/mL) 3.7 Free T4 (0.64 - 1.79 ng/dL) 0.82 Thyroxine (T4) (4.5 - 10.9 ug/dL) 5.0 Toxicology Methadone Screen Cancelled Barbiturate Screen Cancelled Ur Phencyclidine Scrn Cancelled Amphetamines Screen Cancelled U Benzodiazepines Scrn Cancelled Urine Cocaine Screen Cancelled Urine Cannabis Screen Cancelled
--- NOTE | 2016-07-10 11:24 | CP SOUTH PROGRESS NOTE PSYCH ---
Psych (Inpt) Progress Note Progress Note Include the following elements, when applicable: Involvement in the active treatment of the patient with behavioral observations of the patient and the patient's response to the treatment. Review of the ongoing treatment process in the context of the treatment plan. Indication of how multi-disciplinary staff members are carrying out the treatment plan. Plans for future interventions and recommendations for revision of the treatment plan. Liaison with other physicians/providers. Progress Note: PSYCHIATRIST NOTE, 07/10/2016: I discussed this patient's progress to date, current mental status, treatment and discharge planning with staff team today in the daily morning ITTM and met with her again in individual session (along with our medical student Aide--with patient's agreement). Sales Coordinator, Dr. Rainey, has determined from patient's clinican condition and labs that it is prudent to begin patient on hemodialysis today; she is aware but understandably anxious ("I knew this day was coming...but I didn't expect it today"--though this had been discussed with her by Drs. Christiansen and Brigid, as well as myself and other [facility] staff from the outset of this admission). Patient continues on 1:1 constant staff observation as a Fall Risk; there have been no falls reported though patient told us "I fell asleep once last night while I was standing up"--but she did not lose muscle tone and did not fall). Patient had some trouble with us today processing what was being discussed and some things had to be repeated once or twice before she fully comprehended what was being said to her; she is still drowsy, close to falling asleep at times (but not so much during our interview this morning). We discussed the possibility that some of the above and other changes might improve following one or a series of dialysis treatments. Patient brought up spontaneously herself that now that she is "starting on dialysis I will probably need to continue on it" going forward.
--- NOTE | 2016-07-10 11:37 | SOCIAL WORKER PROG NOTE PSYCH ---
Social Work Progress Note Progress Note Pt was violently ill, throwing up and was not in a space to be able to meet, she was also off the unit for her dialysis, she was weal all day and fall risk.
--- NOTE | 2016-07-10 13:02 | NUR ---
PATIENT AFTER SPEAKING WITH DR. HARTMAN IS SCHEDULED FOR DIALYSIS THIS AFTERNOON. APPROX. 1215 pm SHE BEGAN VOMITING. HOD WAS CALLED AND ODT ZYPREXA GIVEN WITH POSITIVE EFFECT SO FAR. CURRENTLY RESTING IN BED. MOOD IS STABLE, TEARFUL FLAT APPOLOGETIC. DENIED THOUGHTS OF SELF HARM WHEN ASKED THIS MORNING.
--- NOTE | 2016-07-10 13:07 | NUR ---
RECVD RETURN CALL FROM DR HARTMAN. HE ADVISED THAT PATIENT SHOULD BEGIN TO FEEL BETTER WITH DIALYSIS AND IF VOMITING CONTINUES IT SHOULD BE ADDRESSED BY HOUSE MEDICAL STAFF
--- NOTE | 2016-07-10 14:33 | NUR ---
PT IS AT DIALYSIS AT THIS TIME WITH [facility]
[2016-07-10 19:57] LABS: ABSOLUTE BASOPHIL COUNT 0 /CUMM (0.0-0.2); ABSOLUTE EOSINOPHIL COUNT 0.1 /CUMM (0.0-0.7); ABSOLUTE GRANULOCYTE CT 2.9 /CUMM (1.4-6.5); ABSOLUTE LYMPH COUNT 0.6 /CUMM (1.2-3.4); ABSOLUTE MONOCYTE COUNT 0.3 /CUMM (0.10-0.60); BASOPHIL % 0.2 % (0.0-2.0); EOSINOPHIL % 2.7 % (0-5); GRANULOCYTE % 75.1 % (42.2-75.2); HEMATOCRIT 33.5 % (37-47); MEAN CORPUSCULAR HGB 28.3 PG (27.0-31.0); MEAN CORPUSCULAR HGB CONC 33.1 G/DL (33.0-37.0); MEAN CORPUSCULAR VOLUME 85.7 FL (81.0-99.0); MEAN PLATELET VOLUME 9.6 FL (7.4-10.4); PLATELET COUNT 79 /CUMM (130-400); RBC DISTRIBUTION WIDTH 16.8 % (11.5-14.5); RED BLOOD CELL CT 3.91 /CUMM (4.20-5.40); WHITE BLOOD CELL COUNT 3.9 /CUMM (4.8-10.8)
--- NOTE | 2016-07-10 21:24 | NUR ---
PT REMAINS ON ONE TO ONE FOR FALL RISK. COMPLIANT, APPROPRIATE, COOPERATIVE. PT IS ALERT AND ORIENTED X4 THIS EVENING SHIFT. PRESENT WITHIN THE COMMUNITY AND INTERACTING WITH PEERS/STAFF MEMBERS. VERY POSITIVE AND BRIGHT AFFECT. PT DID ATTEND WRAP UP. VS ARE STABLE AND DENIES ANY SI/HI.
--- NOTE | 2016-07-11 04:24 | NUR ---
SLEPT WELL SITTER AT BEDSIDE.
[2016-07-11 07:11] VITALS: BP 190/94
[2016-07-11 08:00] VITALS: BP 190/94
--- NOTE | 2016-07-11 08:38 | SOCIAL WORKER PROG NOTE PSYCH ---
Social Work Progress Note Progress Note Staff reported that Lilia was feeling better. She was visible on the unit, and attended some groups. She may be starting Dialysis while inpatient. She denies SI/HI, but depressed and anxious. Encouraged he to engage in groups and talk about her feelings.
--- NOTE | 2016-07-11 09:22 | PN- Nephrology ---
Assessment/Plan Assessment: CKD/ESRD: Stage 5, due to ADPCKD Improved post 1st HD but unable to cannulate AVF this morning Doubt AVF will be better tomorrow & favor IJ HD cath placement today Discussed in detail & she is agreeable Suggestion: 1. INR, PTT 2. ice to AVF today; warm soaks tid starting tomorrow 3. NPO for IR tunneled HD cath placement today 4. repeat HD tomorrow Subjective Subjective: Feeling better after 1st HD yesterday Difficult AVF cannulation yeterday w tender swollen arm Venous needle placed but unable to cannualate arterial on 2 attempts & pt declimes further attempt Objective Vital Signs and I&Os Vital Signs Date Time Temp Pulse Resp B/P B/P Pulse O2 O2 Flow FiO2 Mean Ox Delivery Rate 07/11 0711 99.1 79 20 190/94 07/10 1930 99.0 68 146/76 07/10 1921 99.0 68 146/76 07/10 1827 69 138/81 07/10 1826 69 138/81 07/10 1244 97.8 70 186/77 07/10 1241 97.8 70 186/77 07/10 0949 Room Air Room Air 07/10 0934 97.0 63 140/72 07/10 0933 97.0 63 140/72 Intake & Output 07/11 1600 07/11 0400 07/10 1600 07/10 0400 07/09 1600 07/09 0400 Intake Total Output Total Balance Patient 163 lb 161 lb Weight Weight Standing Scale Measurement Method Physical Exam General Appearance: well developed/nourished, no apparent distress, alert Head: atraumatic Neck: normal inspection Respiratory: lungs clear Cardiovascular: regular rate/rhythm Abdomen: soft Extremities: + bruit JONNATHAN AVF - ecchymotic & edematous Neurologic/Psychiatric: no asterixis Current Medications: Current Medications Sig/Maranda Start time Last Medication Dose Route Stop Time Status Admin Acetaminophen 650 MG Q4P PRN 07/05 1600 AC 07/06 PO 0614 Amlodipine Besylate 5 MG DAILY 07/04 2055 AC 07/10 PO 0933 Aripiprazole 2 MG Q6P PRN 07/09 1600 AC PO Aripiprazole 2 MG 2200 07/07 2200 AC 07/10 PO 2300 Epoetin Gopal 2,000 UNIT TUES THURS SAT PRN 07/10 1500 AC IV Labetalol HCl 100 MG DAILY 07/07 1000 AC 07/10 PO 0934 Melatonin 3 MG AT BEDTIME NEED.. 07/09 1545 AC 07/09 PO 2350 Methadone HCl 40 MG TID 07/04 1600 AC 07/11 PO 07/17 1800 0818 Multivitamins 1 TAB DAILY 07/10 1000 AC 07/10 PO 1109 Omeprazole 20 MG DAILY AC 07/03 1458 AC 07/11 PO 0633 Ondansetron HCl 4 MG ONCE ONE 07/10 1230 DC 07/10 PO 07/10 1231 1236 Paroxetine HCl 20 MG 1700 07/10 1700 AC 07/10 PO 1826 Sevelamer Carbonate 800 MG WM 07/05 0800 AC 07/10 PO 1826 Results Pertinent Lab Results: Laboratory Tests 07/10 07/10 07/09 1937 0553 1115 Chemistry Sodium (137 - 145 mmol/L) 137 139 Cancelled Potassium (3.5 - 5.1 mmol/L) 4.6 4.8 Cancelled Chloride (98 - 107 mmol/L) 103 107 Cancelled Carbon Dioxide (22 - 30 mmol/L) 24 20 L Cancelled Anion Gap (5 - 16) 10 12 Cancelled BUN (7 - 17 mg/dL) 62 H 98 H Cancelled Creatinine (0.5 - 1.0 mg/dL) 3.0 H 4.5 H Cancelled Estimated GFR (>60 ml/min) 16 L 10 L BUN/Creatinine Ratio (7 - 25 %) 20.7 21.8 Cancelled Calcium (8.4 - 10.2 mg/dL) 7.7 L Phosphorus (2.5 - 4.5 mg/dL) 3.9 Magnesium (1.6 - 2.3 mg/dL) 1.9 Hematology WBC (4.8 - 10.8 /CUMM) 3.9 L RBC (4.20 - 5.40 /CUMM) 3.91 L Hgb (12.0 - 16.0 G/DL) 11.1 L Hct (37 - 47 %) 33.5 L MCV (81.0 - 99.0 FL) 85.7 MCH (27.0 - 31.0 PG) 28.3 RDW (11.5 - 14.5 %) 16.8 H Plt Count (130 - 400 /CUMM) 79 L MPV (7.4 - 10.4 FL) 9.6 Gran % (42.2 - 75.2 %) 75.1 Lymphocytes % (20.5 - 51.1 %) 14.5 L Monocytes % (1.7 - 9.3 %) 7.5 Eosinophils % (0 - 5 %) 2.7 Basophils % (0.0 - 2.0 %) 0.2 Absolute Granulocytes (1.4 - 6.5 /CUMM) 2.9 Absolute Lymphocytes (1.2 - 3.4 /CUMM) 0.6 L Absolute Monocytes (0.10 - 0.60 /CUMM) 0.3 Absolute Eosinophils (0.0 - 0.7 /CUMM) 0.1 Absolute Basophils (0.0 - 0.2 /CUMM) 0 PUBS MCHC (33.0 - 37.0 G/DL) 33.1 05/17 1115 Chemistry Sodium (137 - 145 mmol/L) 138 Potassium (3.5 - 5.1 mmol/L) 5.5 H Chloride (98 - 107 mmol/L) 106 Carbon Dioxide (22 - 30 mmol/L) 20 L Anion Gap (5 - 16) 12 BUN (7 - 17 mg/dL) 100 H Creatinine (0.5 - 1.0 mg/dL) 4.8 H Estimated GFR (>60 ml/min) 9 L BUN/Creatinine Ratio (7 - 25 %) 20.8 Phosphorus (2.5 - 4.5 mg/dL) 7.5 H Hematology CBC w Diff NO MAN DIFF REQ WBC (4.8 - 10.8 /CUMM) 4.5 L RBC (4.20 - 5.40 /CUMM) 3.75 L Hgb (12.0 - 16.0 G/DL) 10.5 L Hct (37 - 47 %) 31.8 L MCV (81.0 - 99.0 FL) 84.8 MCH (27.0 - 31.0 PG) 28.0 RDW (11.5 - 14.5 %) 16.2 H Plt Count (130 - 400 /CUMM) 79 L MPV (7.4 - 10.4 FL) 9.7 Gran % (42.2 - 75.2 %) 62.9 Lymphocytes % (20.5 - 51.1 %) 26.2 Monocytes % (1.7 - 9.3 %) 7.3 Eosinophils % (0 - 5 %) 3.2 Basophils % (0.0 - 2.0 %) 0.4 Absolute Granulocytes (1.4 - 6.5 /CUMM) 2.8 Absolute Lymphocytes (1.2 - 3.4 /CUMM) 1.2 Absolute Monocytes (0.10 - 0.60 /CUMM) 0.3 Absolute Eosinophils (0.0 - 0.7 /CUMM) 0.1 Absolute Basophils (0.0 - 0.2 /CUMM) 0 PUBS MCHC (33.0 - 37.0 G/DL) 33.0
[2016-07-11 09:50] LABS: PT 12.1 SEC (9.4-12.5); PTT 32 SEC (25-37)
--- NOTE | 2016-07-11 15:20 | INTERVENTIONAL RADIOLOGY RPT ---
CLINICAL HISTORY: The patient is a 56-year-old female with ESRD, who presents to interventional radiology for placement of a tunneled central venous catheter for hemodialysis. PROCEDURES: 1. Real-time ultrasound-guided access into the right internal jugular vein after documentation of selected vessel patency, and permanent imaging storing in the patient records. 2. Placement of a tunneled 15.5 Fr 19 cm dual lumen central venous catheter. PHYSICIANS: Dr. Blaine Mendoza (attending). The attending radiologist was present during the procedure and related imaging, and reviewed the report. MONITORING: The procedure was performed with conscious sedation and analgesia under my direct supervision. Continuous blood pressure, pulse oximetry as well as heartrate monitoring was performed by an independent registered nurse. Physician intraservice sedation time was 30 minutes. MEDICATIONS: 1. 2 mg of Versed and 100 micrograms of fentanyl were administered. 2. 18 mL of 1% lidocaine SQ. 3. 10 mL of 1% lidocaine with epinephrine SQ. COMPLICATIONS: None. ESTIMATED BLOOD LOSS: <5 mL SPECIMENS: None. CONTRAST: None. FLUOROSCOPY TIME: 1.8 minutes PROCEDURE NOTE: Informed consent was obtained from the patient prior to the procedure. During this process, the procedure and potential alternatives were explained along with the intended outcome and benefits. The risks of the procedure, including the possibility of an unsuccessful procedure, as well as the risk of not doing the procedure, were discussed. The patient was given the opportunity to ask questions regarding the procedure and appeared competent to make decisions. A signed consent form documenting this discussion was placed in the medical record. A time-out procedure was performed. The patient was placed supine on the fluoroscopy table. The neck and chest were prepped and draped in usual sterile fashion. All elements of maximal sterile barrier technique followed including use of cap, mask, sterile gown, sterile gloves, a sterile full body drape and hand hygiene. Also followed skin preparation with 2% chlorhexidine for cutaneous antisepsis, and sterile ultrasound preparation with sterile gel and probe cover when applicable. Local anesthesia was administered to the access site with lidocaine. The right internal jugular vein was accessed using ultrasound with a 5 Fr Micropuncture set. A 0.018 wire was advanced into the high right atrium for measuring purposes. The 0.018 wire was subsequently exchanged for a 0.035 wire that was advanced to the IVC to maintain access during the tunneling process. Next, subcutaneous lidocaine was administered to the chest, and a subcutaneous tunnel that connects to the venotomy site was created using blunt dissection. The dialysis catheter was sized for the correct tunnel length. The catheter was then pulled through the tunnel. The micropuncture set sheath in the IJ was exchanged over the wire for sequential dilators and lastly a peel-away sheath. The inner dilator and 0.035 inch wire were removed, and the catheter was advanced through the sheath. The sheath was peeled away. The catheter was tested, flushed, and sutured to the skin with its tip in the high right atrium. The catheter ports were packed with heparin per routine protocol. The dermatotomy site at the neck was sutured with a 4-0 Vicryl suture. Skin adhesive was applied for added closure at the dermatotomy site at the neck. FINDINGS: 1. Patent right internal jugular vein. 2. Tip of catheter in the high right atrium. 3. Catheter flushes and aspirates very well with a 10 mL syringe. 4. No pneumothorax. IMPRESSION: Successful and uncomplicated placement of a right internal jugular hemodialysis catheter. PLAN: 1. The patient was stable after the procedure and was transferred to the interventional recovery area. The patient will be transferred back to her medical room.. 2. The catheter may be used immediately. 3. The suture securing the catheter should remain in place for 4 weeks or greater.
[2016-07-11 16:22] VITALS: BP 145/74
[2016-07-11 16:25] VITALS: BP 145/74
--- NOTE | 2016-07-11 19:18 | CP SOUTH PROGRESS NOTE PSYCH ---
Psych (Inpt) Progress Note Progress Note Include the following elements, when applicable: Involvement in the active treatment of the patient with behavioral observations of the patient and the patient's response to the treatment. Review of the ongoing treatment process in the context of the treatment plan. Indication of how multi-disciplinary staff members are carrying out the treatment plan. Plans for future interventions and recommendations for revision of the treatment plan. Liaison with other physicians/providers. Progress Note: PSYCHIATRIST NOTE, 07/11/2016: I discussed this patient's progress to date, current mental status, treatment and discharge planning with staff team today in the daily morning ITTM and also met with her again myself in individual session. Patient has had a very difficult time physically and emotionally since yesterday. Dialysis team did initiate hemodialysis yesterday, 07/10/2016, but patient was exhausted afterwards; today they were unable to cannulate the AVF and Dr. Rainey had IJ catheter placed. He is planning for second dialysis tomorrow, 07/12/2016. Patient told me that the catheter site is very painful as is her left arm/forearm which is also bruised and swollen. Despite all she has been through patient was still trying to "keep it together" and has found PRN Abilify, 2mg, helpful; she agreed to my doubling daily regular Abilify dose to 2mg 2x/day, and she will continue to utilize the PRN's which help her with confused, racing and repetitive thoughts. I will not increase current dose of Paxil (20mg/day) over the coming weekend but will re-evaluate on 07/14/2016. Patient also reported another night of better than usual sleep last night which is very encouraging to her (and me). Patient told me she has found the support on [facility] which she had been lacking "for a very long time" in her life, particularly since her was sent off to residential rehab almost 7 months ago. I encouraged her to allow us to contact family member(s) and/or close friends for a family meeting, but she is still resisting this; perhaps she will recover enough over the weekend to reconsider this decision on Thursday; she is very much in need of more support upon/after discharge from hospital.
[2016-07-11 19:47] VITALS: BP 134/72
--- NOTE | 2016-07-11 20:30 | NUR ---
PT IS CALM, COOPERATIVE WITH STAFF AND PEER,S AND COMPLIANT WITH UNIT RULES. PT IS OFTEN IN [place], INTERACTING WELL WITH OTHERS. EVENING PROGRESSED PT BECAME MORE LETHARGIC AND BEGAN SLEEPING IN PT ROOM. MOOD IS STABLE, AFFECT IS EUTHYMIC TO FULL RANGE, COMMUNICATION IS ORGANZIED AND APPEARS NORMAL IN ALL RESPECTS, AND APPETITE IS NORMAL. PT DENIES SI AT THIS TIME.
--- NOTE | 2016-07-12 05:23 | NUR ---
SLEPT OOB X2 WANDERING AND PACING FLOOR, NO COMPLAINTS OFFERED. MADELAINE CATH R SUBCLAVIAN INTACT.
[2016-07-12 07:50] VITALS: BP 152/86
[2016-07-12 09:19] LABS: ABSOLUTE BASOPHIL COUNT 0 /CUMM (0.0-0.2); ABSOLUTE EOSINOPHIL COUNT 0.3 /CUMM (0.0-0.7); ABSOLUTE GRANULOCYTE CT 2.4 /CUMM (1.4-6.5); ABSOLUTE LYMPH COUNT 1.2 /CUMM (1.2-3.4); ABSOLUTE MONOCYTE COUNT 0.4 /CUMM (0.10-0.60); BASOPHIL % 0.4 % (0.0-2.0); EOSINOPHIL % 6.2 % (0-5); GRANULOCYTE % 56.2 % (42.2-75.2); HEMATOCRIT 32.6 % (37-47); MEAN CORPUSCULAR HGB 28.2 PG (27.0-31.0); MEAN CORPUSCULAR HGB CONC 32.6 G/DL (33.0-37.0); MEAN CORPUSCULAR VOLUME 86.4 FL (81.0-99.0); MEAN PLATELET VOLUME 13.5 FL (7.4-10.4); RBC DISTRIBUTION WIDTH 17.1 % (11.5-14.5); RED BLOOD CELL CT 3.78 /CUMM (4.20-5.40)
[2016-07-12 09:57] LABS: PLATELET COUNT 103 /CUMM (130-400); WHITE BLOOD CELL COUNT 4.3 /CUMM (4.8-10.8)
--- NOTE | 2016-07-12 11:24 | PN- Nephrology ---
Assessment/Plan Assessment: CKD/ESRD: Stage 5, due to ADPCKD Had 2nd HD today via IJ cath --> time increased 2.5 hrs Suggestion: next HD Mon --> increase time 3 hrs Subjective Subjective: Feeling much better No uremic sx Had IJ cath placed yesterday & 2nd HD today w/o problems Objective Vital Signs and I&Os Vital Signs Date Time Temp Pulse Resp B/P B/P Pulse O2 O2 Flow FiO2 Mean Ox Delivery Rate 07/12 0840 97.7 64 20 152/86 07/12 0753 Room Air Room Air 07/12 0750 97.7 64 152/86 07/11 1947 98.6 61 134/72 07/11 1726 99.1 60 20 145/74 07/11 1625 60 145/74 07/11 1622 60 145/74 07/11 1400 102 143/101 Intake & Output 07/12 1600 07/12 0400 07/11 1600 07/11 0400 07/10 1600 07/10 0400 Intake Total Output Total Balance Patient 162 lb 163 lb 161 lb Weight Weight Standing Scale Measurement Method Physical Exam General Appearance: no apparent distress, alert Head: normal appearance Ears, Nose, Throat: normal ENT inspection Neck: normal inspection Respiratory: no respiratory distress, quiet respiration, lungs clear Cardiovascular: regular rate/rhythm Abdomen: soft, PCKs Extremities: + bruit JONNATHAN AVF --> edematous & ecchymotic Neurologic/Psychiatric: awake, alert Current Medications: Current Medications Sig/Maranda Start time Last Medication Dose Route Stop Time Status Admin Acetaminophen 650 MG .STK-MED ONE 07/11 1916 DC PO 07/11 1917 Acetaminophen 650 MG .STK-MED ONE 07/11 1422 DC PO 07/11 1423 Acetaminophen 650 MG Q4P PRN 07/05 1600 AC 07/11 PO 1923 Amlodipine Besylate 5 MG DAILY 07/03 2056 AC 07/11 PO 1726 Aripiprazole 2 MG 0800,2200 07/11 2200 AC 07/11 PO 2223 Aripiprazole 2 MG Q4P PRN 07/11 1700 AC 07/11 PO 1726 Aripiprazole 2 MG Q6P PRN 07/09 1600 DC 07/11 PO 1400 Aripiprazole 2 MG 2200 07/07 2200 DC 07/10 PO 2300 Epoetin Gopal 2,000 UNIT TUES THURS SAT PRN 07/10 1500 AC IV Fentanyl Citrate 0 .STK-MED ONE 07/11 1142 DC .ROUTE Labetalol HCl 100 MG DAILY 07/07 1000 AC 07/12 PO 0840 Melatonin 3 MG AT BEDTIME NEED.. 07/09 1545 AC 07/11 PO 2222 Methadone HCl 40 MG 0800,1400,2200 07/11 2200 AC 07/12 PO 0841 Methadone HCl 40 MG TID 07/04 1600 DC 07/11 PO 07/17 1800 1452 Midazolam HCl 0 .STK-MED ONE 07/11 1142 DC .ROUTE Multivitamins 1 TAB DAILY 07/10 1000 AC 07/11 PO 1400 Omeprazole 20 MG DAILY AC 07/03 1458 AC 07/12 PO 0617 Paroxetine HCl 20 MG 1700 07/10 1700 AC 07/11 PO 1726 Sevelamer Carbonate 800 MG WM 07/05 0800 AC 07/11 PO 1726 Results Pertinent Lab Results: Laboratory Tests 07/12 07/11 07/11 0800 0923 0657 Chemistry Sodium (137 - 145 mmol/L) 138 Cancelled Potassium (3.5 - 5.1 mmol/L) 4.6 Cancelled Chloride (98 - 107 mmol/L) 105 Cancelled Carbon Dioxide (22 - 30 mmol/L) 24 Cancelled Anion Gap (5 - 16) 9 Cancelled BUN (7 - 17 mg/dL) 66 H Cancelled Creatinine (0.5 - 1.0 mg/dL) 3.8 H Cancelled Estimated GFR (>60 ml/min) 12 L BUN/Creatinine Ratio (7 - 25 %) 17.4 Cancelled Glucose (65 - 99 mg/dL) 106 H Cancelled Calcium (8.4 - 10.2 mg/dL) 8.5 Cancelled Phosphorus (2.5 - 4.5 mg/dL) 4.5 Cancelled Coagulation PT (9.4 - 12.5 SEC) 12.1 INR (0.90 - 1.19) 1.15 APTT (25 - 37 SEC) 32 Hematology CBC w Diff NO MAN DIFF REQ Cancelled WBC (4.8 - 10.8 /CUMM) 4.3 L Cancelled RBC (4.20 - 5.40 /CUMM) 3.78 L Cancelled Hgb (12.0 - 16.0 G/DL) 10.6 L Cancelled Hct (37 - 47 %) 32.6 L Cancelled MCV (81.0 - 99.0 FL) 86.4 Cancelled MCH (27.0 - 31.0 PG) 28.2 Cancelled RDW (11.5 - 14.5 %) 17.1 H Cancelled Plt Count (130 - 400 /CUMM) 103 L Cancelled MPV (7.4 - 10.4 FL) 13.5 H Cancelled Gran % (42.2 - 75.2 %) 56.2 Lymphocytes % (20.5 - 51.1 %) 28.5 Monocytes % (1.7 - 9.3 %) 8.7 Eosinophils % (0 - 5 %) 6.2 H Basophils % (0.0 - 2.0 %) 0.4 Absolute Granulocytes (1.4 - 6.5 /CUMM) 2.4 Absolute Lymphocytes (1.2 - 3.4 /CUMM) 1.2 Absolute Monocytes (0.10 - 0.60 /CUMM) 0.4 Absolute Eosinophils (0.0 - 0.7 /CUMM) 0.3 Absolute Basophils (0.0 - 0.2 /CUMM) 0 PUBS MCHC (33.0 - 37.0 G/DL) 32.6 L Cancelled 07/10 07/10 1937 0553 Chemistry Sodium (137 - 145 mmol/L) 137 139 Potassium (3.5 - 5.1 mmol/L) 4.6 4.8 Chloride (98 - 107 mmol/L) 103 107 Carbon Dioxide (22 - 30 mmol/L) 24 20 L Anion Gap (5 - 16) 10 12 BUN (7 - 17 mg/dL) 62 H 98 H Creatinine (0.5 - 1.0 mg/dL) 3.0 H 4.5 H Estimated GFR (>60 ml/min) 16 L 10 L BUN/Creatinine Ratio (7 - 25 %) 20.7 21.8 Calcium (8.4 - 10.2 mg/dL) 7.7 L Phosphorus (2.5 - 4.5 mg/dL) 3.9 Magnesium (1.6 - 2.3 mg/dL) 1.9 Hematology WBC (4.8 - 10.8 /CUMM) 3.9 L RBC (4.20 - 5.40 /CUMM) 3.91 L Hgb (12.0 - 16.0 G/DL) 11.1 L Hct (37 - 47 %) 33.5 L MCV (81.0 - 99.0 FL) 85.7 MCH (27.0 - 31.0 PG) 28.3 RDW (11.5 - 14.5 %) 16.8 H Plt Count (130 - 400 /CUMM) 79 L MPV (7.4 - 10.4 FL) 9.6 Gran % (42.2 - 75.2 %) 75.1 Lymphocytes % (20.5 - 51.1 %) 14.5 L Monocytes % (1.7 - 9.3 %) 7.5 Eosinophils % (0 - 5 %) 2.7 Basophils % (0.0 - 2.0 %) 0.2 Absolute Granulocytes (1.4 - 6.5 /CUMM) 2.9 Absolute Lymphocytes (1.2 - 3.4 /CUMM) 0.6 L Absolute Monocytes (0.10 - 0.60 /CUMM) 0.3 Absolute Eosinophils (0.0 - 0.7 /CUMM) 0.1 Absolute Basophils (0.0 - 0.2 /CUMM) 0 PUBS MCHC (33.0 - 37.0 G/DL) 33.1
--- NOTE | 2016-07-12 11:34 | NUR ---
pt returned from dialysis..weight is 162.6 and vs 187/87 p=60.pts dressing was changed in dialysis and is dry and intact
--- NOTE | 2016-07-12 12:17 | CP SOUTH PROGRESS NOTE PSYCH ---
Psych (Inpt) Progress Note Progress Note Patients record reviewed, SANDRA Dacosta gave verbal report Vitals and medication list reviewed. BP this AM was 152/86, pulse 64 bpm, Temp 97.7, RR 20 Sleep log indicated that patient slept fair, out of bed few times, pacing She reported that she slept 6 hours which is better than I have ever got Patient went to dialysis today I interviewed patient Diagnoses of Record: F32.9 Unspecified Depressive Disorder F14.20 Stimulant Use Disorder, Cocaine Lab Absolute Basophils 0 /CUMM 07/12/16 0800 Absolute Eosinophils 0.3 /CUMM 07/12/16 0800 Absolute Granulocytes 2.4 /CUMM 07/12/16 0800 Absolute Lymphocytes 1.2 /CUMM 07/12/16 0800 Absolute Monocytes 0.4 /CUMM 07/12/16 0800 Basophils % 0.4 % 07/12/16 08 CBC w Diff NO MAN DIFF REQ 07/12/16 08 Eosinophils % 6.2 % H 07/12/16 08 Gran % 56.2 % 07/12/16 0800 Hct 32.6 % L 07/12/16 0800 Hgb 10.6 G/DL L 07/12/16 0800 Lymphocytes % 28.5 % 07/12/16 08 MCH 28.2 PG 07/12/16 08 MCV 86.4 FL 07/12/16 0800 MPV 13.5 FL H 07/12/16 08 Monocytes % 8.7 % 07/12/16 08 PUBS MCHC 32.6 G/DL L 07/12/16 0800 Plt Count 103 /CUMM L 07/12/16 0800 RBC 3.78 /CUMM L 07/12/16 0800 RDW 17.1 % H 07/12/16 0800 WBC 4.3 /CUMM L 07/12/16 0800 Lab Anion Gap 9 07/12/16 0800 BUN 66 mg/dL H 07/12/16 08 BUN/Creatinine Ratio 17.4 % 07/12/16 0800 Calcium 8.5 mg/dL 07/12/16799 Carbon Dioxide 24 mmol/L 07/12/16 0800 Chloride 105 mmol/L 07/12/16 08 Creatinine 3.8 mg/dL H 07/12/16 08 Estimated GFR 12 ml/min L 07/12/16799 Glucose 106 mg/dL H 07/12/16 0800 Phosphorus 4.5 mg/dL 07/12/16 08 Potassium 4.6 mmol/L 07/12/16 08 Sodium 138 mmol/L 07/12/16 08 Mental Status Update Patient reported that she slept well (despite sleep log above) Came back from dialysis and was not too tired, she was cleaning in the kitchen when I asked to meet with her, good sense of humor I am just obsessively cleaning as you can see. alert, oriented, and coherent. Denied thoughts of suicide, denied hallucinations , denied paranoia, and denied violent thoughts or homicidal ideation, no thought disorder. Pharmacological Management: I discussed pharmacological plan as per Dr. Giron notes, we agreed on the following plan: Continue same meds Will follow up tomorrow
[2016-07-12 12:26] VITALS: BP 184/87
--- NOTE | 2016-07-12 12:50 | NUR ---
PT IS COMPLIANT AND COOPERATIVE. MOOD IS STABLE WITH A CONSTRICTED AFFECT. PT DENIES SI AT THIS TIME. PT RECIEVING DIALYSIS UNTIL AROUND 1130. SINCE RETURNING TO UNIT- PT HAS BEEN OOB, SOCIALIZING WITH PEERS AND STAFF. PT GAIT IS STEADY. THOUGHT CONTENT APPEARS CLEAR. PT IS ALERT AND ORIENTED. PT HAS BEEN EXCUSED FROM GROUPS D/T DIALYSIS TREATMENT. VITALS ARE STABBLE, APPETITE IS GOOD.
[2016-07-12 16:08] VITALS: BP 144/78
[2016-07-12 20:04] VITALS: BP 189/88
--- NOTE | 2016-07-12 20:30 | NUR ---
PT IS CALM, COOPERATIVE WITH STAFF AND PEER,S AND COMPLIANT WITH UNIT RULES. PT IS OFTEN IN [place], INTERACTING WELL WITH OTHERS. MOOD IS STABLE, AFFECT IS EUTHMIC TO FULL RANGE, COMMUNICATION IS ORGANIZED AND APPEARS NORMAL IN ALL RESPECTS, AND APPETITE IS NORMAL. PT DENIES SI AT THIS TIME.
--- NOTE | 2016-07-12 22:56 | NUR ---
PT REPORTED LEFT UPPER "TOOTHACHE" WITH RADIATING PAIN UP SIDE OF FACE TO EAR. T/C TO DR VAZQUEZ WHO ORDERED TRAMADOL FOR PAIN. PT EDUCATED ON WHY NSAIDS CONTRAINDICATED (KIDNEY DISEASE.) PT VERBALIZED UNDERSTANDING.
--- NOTE | 2016-07-13 04:54 | NUR ---
PT WAS UP X 1 PT SLEPT. PT C -SI.
[2016-07-13 07:55] VITALS: BP 149/84
--- NOTE | 2016-07-13 11:57 | CP SOUTH PROGRESS NOTE PSYCH ---
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 Denied thoughts of suicide, denied hallucinations , denied paranoia, and denied violent thoughts or homicidal ideation, no thought disorder. room since my daughter Pharmacological Management: I discussed pharmacological options, we agreed on the following plan: Continue same psychotropic meds Add Cipro 500 mg once daily until she sees a dentist Will follow up with her regular team tomorrow
--- NOTE | 2016-07-13 12:15 | NUR ---
Patient is A&O X 3, compliant with medication and group therapies/ activities. Patient is present in the community interactes with other peers and staff members.vital sign is stable and within acceptable range, mood is stable with full range affects. Patient report tooth ache at 8/10 on pain scale, has ordered Ciproflaxacin 250 mg BID to that affects. Patient is encouraged by the staff to continue to alternates cold & warm compress in her AVF- above the knee Left that got infiltrated during the first attempt use for dialysis treatment. patient denies thought of self-harm and to someone else.
[2016-07-13 12:20] VITALS: BP 145/68
[2016-07-13 16:03] VITALS: BP 148/76
--- NOTE | 2016-07-13 19:08 | NUR ---
PT IS CALM, COOPERATIVE WITH STAFF AND PEERS, AND COMPLIANT WITH UNIT RULES. PT IS OFTEN IN [place], INTERACTING WELL WITH OTHERS. MOOD IS STABLE, AFFECT IS EUTHYMIC TO FULL RANGE, COMMUNICATION IS ORGANIZED AND APPEARS NORMAL IN ALL RESPECTS, AND APPETITE IS NORMAL. PT DENIES SI AT THIS TIME.
[2016-07-13 19:39] VITALS: BP 189/87
--- NOTE | 2016-07-14 04:21 | NUR ---
SLEPT WELL. TELLING THIS NURSE ABOUT THE SAD STORY OF HIS LIFE.
[2016-07-14 07:59] VITALS: BP 195/80
--- NOTE | 2016-07-14 09:24 | PN- Nephrology ---
Assessment/Plan Assessment: 1. CKD/ESRD: Stage 5, due to ADPCKD; 3rd HD in progress --> increase time 3 hrs & UF 1.5 liters 2. HTN: too high --> for morning meds & need labetalol increase Suggestion: 1. HD/UF again tomorrow 2. increase labetalol 100mg bid ? discharge planning - has outpt HD [facility] starting Thur Subjective Subjective: Feeling better BP hi this morning but no meds yet Objective Vital Signs and I&Os Vital Signs Date Time Temp Pulse Resp B/P B/P Pulse O2 O2 Flow FiO2 Mean Ox Delivery Rate 07/14 075 97.3 61 195/80 07/13 1939 98.3 61 189/87 07/13 1603 59 148/76 07/13 1220 57 145/68 07/13 0913 96.2 62 20 149/84 07/13 0912 96.2 62 20 149/84 Intake & Output 07/14 1600 07/14 0400 07/13 1600 07/13 0400 07/12 1600 07/12 0400 Intake Total Output Total Balance Patient 162 lb Weight Physical Exam General Appearance: well developed/nourished, no apparent distress, alert Head: atraumatic, normal appearance Ears, Nose, Throat: normal ENT inspection Neck: R IJ HD cath Respiratory: lungs clear Cardiovascular: regular rate/rhythm Abdomen: soft, PCK bilat Extremities: + bruit JONNATHAN AVF w ecchymosis but less edema Neurologic/Psychiatric: awake, alert Current Medications: Current Medications Sig/Maranda Start time Last Medication Dose Route Stop Time Status Admin Acetaminophen 650 MG Q4P PRN 07/05 1600 AC 07/12 PO 2130 Amlodipine Besylate 5 MG DAILY 07/03 205 AC 07/13 PO 09 Aripiprazole 2 MG 0800,2200 07/11 2200 AC 07/13 PO 2208 Aripiprazole 2 MG Q4P PRN 07/11 1700 AC 07/14 PO 0256 Ciprofloxacin 500 MG 1200 07/13 1200 AC 07/13 PO 07/17 1159 1311 Ciprofloxacin 250 MG BID 07/13 1130 DC PO 07/20 1129 Epoetin Gopal 2,000 UNIT TUES THURS SAT PRN 07/10 1500 AC IV Labetalol HCl 100 MG DAILY 07/07 1000 AC 07/13 PO 09 Melatonin 3 MG AT BEDTIME NEED.. 05/17 1545 AC 07/13 PO 2207 Methadone HCl 40 MG 0800,1400,2200 07/11 2200 AC 07/14 PO 0834 Multivitamins 1 TAB DAILY 07/10 1000 AC 07/13 PO 1207 Nicotine 2 MG Q2 HRS NEEDED PRN 07/13 1830 AC 07/13 PO 1830 Omeprazole 20 MG DAILY AC 07/03 1458 AC 07/14 PO 0750 Paroxetine HCl 20 MG 1700 07/10 1700 AC 07/13 PO 1615 Sevelamer Carbonate 800 MG WM 07/05 0800 AC 07/13 PO 1615 Results Pertinent Lab Results: Laboratory Tests 07/12 07/11 0800 0923 Chemistry Sodium (137 - 145 mmol/L) 138 Potassium (3.5 - 5.1 mmol/L) 4.6 Chloride (98 - 107 mmol/L) 105 Carbon Dioxide (22 - 30 mmol/L) 24 Anion Gap (5 - 16) 9 BUN (7 - 17 mg/dL) 66 H Creatinine (0.5 - 1.0 mg/dL) 3.8 H Estimated GFR (>60 ml/min) 12 L BUN/Creatinine Ratio (7 - 25 %) 17.4 Glucose (65 - 99 mg/dL) 106 H Calcium (8.4 - 10.2 mg/dL) 8.5 Phosphorus (2.5 - 4.5 mg/dL) 4.5 Coagulation PT (9.4 - 12.5 SEC) 12.1 INR (0.90 - 1.19) 1.15 APTT (25 - 37 SEC) 32 Hematology CBC w Diff NO MAN DIFF REQ WBC (4.8 - 10.8 /CUMM) 4.3 L RBC (4.20 - 5.40 /CUMM) 3.78 L Hgb (12.0 - 16.0 G/DL) 10.6 L Hct (37 - 47 %) 32.6 L MCV (81.0 - 99.0 FL) 86.4 MCH (27.0 - 31.0 PG) 28.2 RDW (11.5 - 14.5 %) 17.1 H Plt Count (130 - 400 /CUMM) 103 L MPV (7.4 - 10.4 FL) 13.5 H Gran % (42.2 - 75.2 %) 56.2 Lymphocytes % (20.5 - 51.1 %) 28.5 Monocytes % (1.7 - 9.3 %) 8.7 Eosinophils % (0 - 5 %) 6.2 H Basophils % (0.0 - 2.0 %) 0.4 Absolute Granulocytes (1.4 - 6.5 /CUMM) 2.4 Absolute Lymphocytes (1.2 - 3.4 /CUMM) 1.2 Absolute Monocytes (0.10 - 0.60 /CUMM) 0.4 Absolute Eosinophils (0.0 - 0.7 /CUMM) 0.3 Absolute Basophils (0.0 - 0.2 /CUMM) 0 PUBS MCHC (33.0 - 37.0 G/DL) 32.6 L
[2016-07-14 10:16] LABS: ABSOLUTE BASOPHIL COUNT 0 /CUMM (0.0-0.2); ABSOLUTE EOSINOPHIL COUNT 0.2 /CUMM (0.0-0.7); ABSOLUTE GRANULOCYTE CT 2.4 /CUMM (1.4-6.5); ABSOLUTE LYMPH COUNT 1.2 /CUMM (1.2-3.4); ABSOLUTE MONOCYTE COUNT 0.4 /CUMM (0.10-0.60); BASOPHIL % 0.6 % (0.0-2.0); EOSINOPHIL % 5.1 % (0-5); HEMATOCRIT 33.1 % (37-47); MEAN CORPUSCULAR HGB CONC 32.5 G/DL (33.0-37.0); MEAN CORPUSCULAR VOLUME 86.2 FL (81.0-99.0); MEAN PLATELET VOLUME 10.9 FL (7.4-10.4); RED BLOOD CELL CT 3.84 /CUMM (4.20-5.40); WHITE BLOOD CELL COUNT 4.4 /CUMM (4.8-10.8)
[2016-07-14 10:39] LABS: PLATELET COUNT 83 /CUMM (130-400)
[2016-07-14 12:57] VITALS: BP 171/81
--- NOTE | 2016-07-14 14:22 | NUR ---
PT WAS OFF THE UNIT AT DIALYSIS ALL MORNING. SHE RETURNED AT LUNCHTIME. VITALS ARE STABLE AND SHE IS HAVING LUNCH. SHE WILL HAVE DIALYSIS AGAIN TOMORROW. SHE IS COMPLIANT WITH HER MED REGIME AND STATED HER MOOD WAS SLIGHTLY DEPRESSED AND ANXIOUS. SHE DENIED ANY SUICIDAL THOUGHTS. WEIGHT AND VITALS OBTAINED
[2016-07-14 15:42] VITALS: BP 135/85
--- NOTE | 2016-07-14 16:00 | SOCIAL WORKER PROG NOTE PSYCH ---
Social Work Progress Note Progress Note Discussed progress and planning Lilia with Dr. Cruz. Dr. Cruz and I met with Lilia, she stated she is feeling better, started Dialysis. She reports no SI/HI, no psycosis.Her affect has improved, more range of affect. She reports being depressed, and less intrusive thougths about her daughter's tragic . She stated she felt guilty for so many years about her daughter's . She knows her daughter "would be pissed if she knew how long I have been this way." Lilia agreed to attend [facility]. She has a referral to [facility] - [address] [place] [address] - 3x per week. Transportation to and from Dialysis via [employer]. Joceline Cho LCSW is assiting in making the arrangements for the Dialysis follow-up/transportation. Joceline's beeper is 88-150. Obtained intake appointment for [facility] at 12:45pm on . 07/16/16. Need to make sure the days of IOP do not conflict with Dialysis. The Dialysis schedule will be clear by tomorrow 07/15 (from Joceline Cho LCSW).
--- NOTE | 2016-07-14 19:35 | NUR ---
PT HAS REPORTED FEELING A LITTLE BIT ANXIOUS AT TIME AND SPOKE TO STAFF ABOUT HER DC PLANS. SHE EXPRESSED A DESIRE TO PRAY FOR EVERYTHING TO WORK OUT IN TERMS OF HER KIDNEY FUNCTION AND DIALYSIS. STAFF ENCOURAGED HER TO TAKE IT ONE DAY AT A TIME AND TREAT ISSUES THEY ARISE RATHER THAN WORRYING ABOUT THE WHAT IF'S. PT DENIES ANY THOUGHTS OF SI AT THIS TIME.
--- NOTE | 2016-07-14 20:05 | CP SOUTH PROGRESS NOTE PSYCH ---
Psych (Inpt) Progress Note Progress Note Include the following elements, when applicable: Involvement in the active treatment of the patient with behavioral observations of the patient and the patient's response to the treatment. Review of the ongoing treatment process in the context of the treatment plan. Indication of how multi-disciplinary staff members are carrying out the treatment plan. Plans for future interventions and recommendations for revision of the treatment plan. Liaison with other physicians/providers. Progress Note: PSYCHIATRIST NOTE, 07/14/2016: I discussed this patient's slow progress to date, current mental status, treatment and discharge planning with staff team today in the daily morning ITTM and also Patricia Mccall LCSW and I met with her together in individual session shortly after she returned from a hemodialysis treatment; she was alert, bright in affect, spontaneous, NOT sleepy/falling asleep while speaking as she had been late last week before regular dialysis began; however, the treatment was also somewhat painful; patient hopes that will improve soon. The low dose PRN's of Abilify have been helpful in reducing/temporarily dampening racing thoughts; she is sleeping better. Patient continues to be positive about attending the IOP and will be going to the behavioral health track provided she can give a pledge to completely refrain from use of Marijuana during programming and understands that random urine collections will be a part of her treatment so long as she is in IOP.
[2016-07-14 20:08] VITALS: BP 141/91
--- NOTE | 2016-07-15 05:29 | NUR ---
PT RECEIVED TYLENOL FOR DENTAL PAIN. PT UP X 1. PT SLEPT.
[2016-07-15 08:03] VITALS: BP 155/86
--- NOTE | 2016-07-15 09:54 | PN- Nephrology ---
Assessment/Plan Assessment: 1. ESRD: due to ADPCKD; 4th HD later this morning --> increase time 3.5 hrs 2. HTN: improved Suggestion: Next HD OK for discharge from renal perspective --> has out pt HD seat [facility] starting Subjective Subjective: Nausea/abd tight this morning No vomiting- ate yesterday No SOB Objective Vital Signs and I&Os Vital Signs Date Time Temp Pulse Resp B/P B/P Pulse O2 O2 Flow FiO2 Mean Ox Delivery Rate 07/15 0838 61 155/86 07/15 0837 61 155/86 07/15 0803 98.1 61 155/86 07/14 2200 141/91 07/15 2007 99.1 64 141/91 07/14 1542 65 135/85 07/14 1257 63 171/81 Intake & Output 07/15 1600 07/15 0400 07/14 1600 07/14 0400 07/13 1600 07/13 0400 Intake Total Output Total Balance Patient 155 lb Weight Physical Exam General Appearance: well developed/nourished, no apparent distress, alert Head: normal appearance Ears, Nose, Throat: normal ENT inspection Neck: R IJ HD cath Respiratory: no respiratory distress, quiet respiration, lungs clear Cardiovascular: regular rate/rhythm Abdomen: soft, distended w PCKs Extremities: no edema, + bruit L arm AVF; less edema --> ecchymotic still Current Medications: Current Medications Sig/Maranda Start time Last Medication Dose Route Stop Time Status Admin Acetaminophen 650 MG .STK-MED ONE 07/15 0000 DC PO 07/15 0001 Acetaminophen 650 MG Q4P PRN 07/05 1600 AC 07/15 PO 0006 Amlodipine Besylate 5 MG DAILY 07/04 2055 AC 07/15 PO 0838 Aripiprazole 2 MG 0800 07/15 0800 AC 07/15 PO 0838 Aripiprazole 4 MG 07/140 AC 07/14 PO 2159 Aripiprazole 2 MG 0800,07/11 2200 DC 07/14 PO 1334 Aripiprazole 2 MG Q4P PRN 07/11 1700 AC 07/14 PO 2035 Ciprofloxacin 500 MG 1200 07/13 1200 AC 07/14 PO 07/17 1159 1335 Epoetin Gopal 2,000 UNIT TU SAT PRN 07/10 1500 AC IV Labetalol HCl 100 MG BID 07/14 1000 AC 07/15 PO 0837 Melatonin 3 MG AT BEDTIME NEED.. 07/09 1545 AC 07/14 PO 2200 Methadone HCl 40 MG 0800,1400,2200 07/11 220 AC 07/15 PO 0837 Multivitamins 1 TAB DAILY 07/10 1000 AC 07/15 PO 0838 Nicotine 2 MG Q2 HRS NEEDED PRN 07/13 1830 AC 07/13 PO 1830 Omeprazole 20 MG DAILY AC 07/03 1458 AC 07/15 PO 0838 Paroxetine HCl 30 MG 17007/14 1700 AC 07/14 PO 1724 Paroxetine HCl 20 MG 1700 07/10 1700 DC 07/13 PO 1615 Sevelamer Carbonate 800 MG WM 07/05 0800 AC 07/15 PO 0838 Results Pertinent Lab Results: Laboratory Tests 07/14 0900 Chemistry Sodium (137 - 145 mmol/L) 140 Potassium (3.5 - 5.1 mmol/L) 4.7 Chloride (98 - 107 mmol/L) 105 Carbon Dioxide (22 - 30 mmol/L) 26 Anion Gap (5 - 16) 10 BUN (7 - 17 mg/dL) 53 H Creatinine (0.5 - 1.0 mg/dL) 3.8 H Estimated GFR (>60 ml/min) 12 L BUN/Creatinine Ratio (7 - 25 %) 13.9 Phosphorus (2.5 - 4.5 mg/dL) 4.3 Magnesium (1.6 - 2.3 mg/dL) 1.8 Hematology CBC w Diff MAN DIFF ORDERED WBC (4.8 - 10.8 /CUMM) 4.4 L RBC (4.20 - 5.40 /CUMM) 3.84 L Hgb (12.0 - 16.0 G/DL) 10.8 L Hct (37 - 47 %) 33.1 L MCV (81.0 - 99.0 FL) 86.2 MCH (27.0 - 31.0 PG) 28.0 RDW (11.5 - 14.5 %) 17.0 H Plt Count (130 - 400 /CUMM) 83 L MPV (7.4 - 10.4 FL) 10.9 H Gran % (42.2 - 75.2 %) 56.0 Lymphocytes % (20.5 - 51.1 %) 28.4 Monocytes % (1.7 - 9.3 %) 9.9 H Eosinophils % (0 - 5 %) 5.1 H Basophils % (0.0 - 2.0 %) 0.6 Absolute Granulocytes (1.4 - 6.5 /CUMM) 2.4 Absolute Lymphocytes (1.2 - 3.4 /CUMM) 1.2 Absolute Monocytes (0.10 - 0.60 /CUMM) 0.4 Absolute Eosinophils (0.0 - 0.7 /CUMM) 0.2 Absolute Basophils (0.0 - 0.2 /CUMM) 0 Platelet Estimate (ADEQUATE) DECREASED Polychromasia 1+ Anisocytosis 1+ PUBS MCHC (33.0 - 37.0 G/DL) 32.5 L
[2016-07-15 10:54] LABS: ABSOLUTE BASOPHIL COUNT 0 /CUMM (0.0-0.2); ABSOLUTE EOSINOPHIL COUNT 0.2 /CUMM (0.0-0.7); ABSOLUTE GRANULOCYTE CT 2.7 /CUMM (1.4-6.5); ABSOLUTE LYMPH COUNT 1.3 /CUMM (1.2-3.4); ABSOLUTE MONOCYTE COUNT 0.5 /CUMM (0.10-0.60); BASOPHIL % 0.9 % (0.0-2.0); EOSINOPHIL % 4.8 % (0-5); GRANULOCYTE % 57.4 % (42.2-75.2); HEMATOCRIT 34.8 % (37-47); MEAN CORPUSCULAR HGB 28.2 PG (27.0-31.0); MEAN CORPUSCULAR HGB CONC 32.5 G/DL (33.0-37.0); MEAN CORPUSCULAR VOLUME 86.8 FL (81.0-99.0); MEAN PLATELET VOLUME 9.7 FL (7.4-10.4); RBC DISTRIBUTION WIDTH 16.9 % (11.5-14.5); RED BLOOD CELL CT 4.01 /CUMM (4.20-5.40); WHITE BLOOD CELL COUNT 4.8 /CUMM (4.8-10.8)
[2016-07-15 11:19] LABS: PLATELET COUNT 86 /CUMM (130-400)
--- NOTE | 2016-07-15 12:34 | SOCIAL WORKER PROG NOTE PSYCH ---
Social Work Progress Note Progress Note Pt is lethargic, and adjusting to medical treatment, is hopeful upon discharge to continue dialysis, along with connecting to family. Pt is sad, denies si/hi/ ah/vh.
--- NOTE | 2016-07-15 14:21 | NUR ---
PT HAS BEEN IN DIALYSIS TREATMENT FOR MOST OF THE DAY. PT DENIES THOUGHTS OF HURTING HERSELF WHEN ASKED.
[2016-07-15 15:52] VITALS: BP 126/87
--- NOTE | 2016-07-15 19:02 | NUR ---
PT IS CALM, COOPERATIVE WITH STAFF AND PEERS, AND COMPLIANT WITH UNIT RULES. PT IS OFTEN IN MILEIU, INTERACTING WELL WITHOTHERS. MOOD IS STABLE, AFFECT IS EUTHYMIC TO FULL RANGE, COMMUNICATION IS ORGANIZED AND APPEARS NORMAL IN ALL RESPECTS, AND APPETITE IS NORMAL. PT DENIES SI AT THIS TIME.
[2016-07-15 19:52] VITALS: BP 140/72
--- NOTE | 2016-07-16 04:05 | NUR ---
SLEPT, PORT A CATH INTACT.
--- NOTE | 2016-07-16 06:44 | CP SOUTH PROGRESS NOTE PSYCH ---
Psych (Inpt) Progress Note Progress Note Include the following elements, when applicable: Involvement in the active treatment of the patient with behavioral observations of the patient and the patient's response to the treatment. Review of the ongoing treatment process in the context of the treatment plan. Indication of how multi-disciplinary staff members are carrying out the treatment plan. Plans for future interventions and recommendations for revision of the treatment plan. Liaison with other physicians/providers. Progress Note: PSYCHIATRIST NOTE (for 07/15/2016): I discussed this patient's progress to date, current mental status, treatment and discharge planning with staff team today in the daily morning ITTM and also met with her again myself in individual session shortly after her return from hemodialysis. Patient told me that the treatment today was less painful but nonetheless made her very tired; despite her fatigue patient was alert during our session, likely related to the effects of her treatment. Patient noted the benefit of the PRN Abilify (2mg) she has been taking during the day in reducing/stopping racing thoughts and ruminations; after further discussion and description of R/B/SE of higher doses of Abilify, patient agreed to increasing the daily dose to 2mg 3x/day and 4mg at HS, starting with today with the 5pm dose (on 07/15/2016). Patient has tolerated the increase in dose of Paxil to 30mg/ay and moving the time of administration from 8am to 5pm well with no noted side effects. She reports btter sleep at night. I had spoken briefly with information systems consultant, Dr. Rainey, today; he said hemodialysis treatments were going well and patient would be starting 3x/week hemodialysis as of 07/17/2016. Patient feels ready for discharge tomorrow, 07/16/2016 and will have an intake at the [facility] on that date as well.
[2016-07-16 07:52] VITALS: BP 133/87
[2016-07-16 08:54] VITALS: BP 133/87
--- NOTE | 2016-07-16 09:06 | PN- Nephrology ---
Assessment/Plan Assessment: 1. ESRD: due to ADPCKD; no HD need today 2. HTN: improved Suggestion: OK for discharge on current meds Outpt HD tomorrow [facility] Subjective Subjective: No complaints - tolerated 4th HD yesterday w/o problem Feeling better overall No further vomiting For discharge today Objective Vital Signs and I&Os Vital Signs Date Time Temp Pulse Resp B/P B/P Pulse O2 O2 Flow FiO2 Mean Ox Delivery Rate 07/16 0854 98.8 62 20 133/87 07/16 0854 98.8 62 20 133/87 07/16 0752 98.8 62 133/87 07/15 2232 62 140/72 07/15 1952 99.0 62 140/72 07/15 1552 63 126/87 Intake & Output 07/16 1600 07/16 0400 07/15 1600 07/15 0400 07/14 1600 07/14 0400 Intake Total Output Total Balance Patient 152 lb 155 lb Weight Weight Standing Scale Measurement Method Physical Exam General Appearance: well developed/nourished, no apparent distress, alert Head: atraumatic, normal appearance Ears, Nose, Throat: normal ENT inspection Neck: R IJ HD cath Respiratory: no respiratory distress, quiet respiration, lungs clear Cardiovascular: regular rate/rhythm Abdomen: distention, bilat large PCKs Extremities: no edema, + bruit JONNATHAN AVF - still ecchymotcic but edema resolved Neurologic/Psychiatric: awake, alert, oriented x 3 Current Medications: Current Medications Sig/Maranda Start time Last Medication Dose Route Stop Time Status Admin Acetaminophen 650 MG Q4P PRN 07/05 1600 AC 07/15 PO 0006 Amlodipine Besylate 5 MG DAILY 07/03 205 AC 07/16 PO 0854 Aripiprazole 2 MG 0800,1300,1700 07/15 1700 AC 07/16 PO 0854 Aripiprazole 2 MG 0800 07/15 0800 DC 07/15 PO 0838 Aripiprazole 4 MG 2200 07/14 2200 AC 07/15 PO 2141 Aripiprazole 2 MG Q4P PRN 07/11 1700 DC 07/15 PO 1406 Ciprofloxacin 500 MG 1200 07/13 1200 AC 07/15 PO 07/17 1159 1404 Epoetin Gopal 2,000 UNIT TUES THURS SAT PRN 07/10 1500 AC IV Labetalol HCl 100 MG BID 07/14 1000 AC 07/16 PO 0854 Melatonin 3 MG AT BEDTIME NEED.. 07/09 1545 AC 07/15 PO 2232 Methadone HCl 40 MG 0800,1400,2200 07/11 2200 AC 07/16 PO 0854 Multivitamins 1 TAB DAILY 07/10 1000 AC 07/16 PO 0854 Nicotine 2 MG Q2 HRS NEEDED PRN 07/13 1830 AC 07/13 PO 1830 Omeprazole 20 MG DAILY AC 07/03 1458 AC 07/16 PO 0636 Paroxetine HCl 30 MG 1700 07/14 1700 AC 07/15 PO 1711 Sevelamer Carbonate 800 MG WM 07/05 0800 AC 07/16 PO 0854 Results Pertinent Lab Results: Laboratory Tests 07/15 07/14 1000 0900 Chemistry Sodium (137 - 145 mmol/L) 141 140 Potassium (3.5 - 5.1 mmol/L) 4.9 4.7 Chloride (98 - 107 mmol/L) 104 105 Carbon Dioxide (22 - 30 mmol/L) 26 26 Anion Gap (5 - 16) 10 10 BUN (7 - 17 mg/dL) 37 H 53 H Creatinine (0.5 - 1.0 mg/dL) 3.4 H 3.8 H Estimated GFR (>60 ml/min) 14 L 12 L BUN/Creatinine Ratio (7 - 25 %) 10.9 13.9 Calcium (8.4 - 10.2 mg/dL) 9.2 Phosphorus (2.5 - 4.5 mg/dL) 4.3 Magnesium (1.6 - 2.3 mg/dL) 1.8 Hematology CBC w Diff NO MAN DIFF REQ MAN DIFF ORDERED WBC (4.8 - 10.8 /CUMM) 4.8 4.4 L RBC (4.20 - 5.40 /CUMM) 4.01 L 3.84 L Hgb (12.0 - 16.0 G/DL) 11.3 L 10.8 L Hct (37 - 47 %) 34.8 L 33.1 L MCV (81.0 - 99.0 FL) 86.8 86.2 MCH (27.0 - 31.0 PG) 28.2 28.0 RDW (11.5 - 14.5 %) 16.9 H 17.0 H Plt Count (130 - 400 /CUMM) 86 L 83 L MPV (7.4 - 10.4 FL) 9.7 10.9 H Gran % (42.2 - 75.2 %) 57.4 56.0 Lymphocytes % (20.5 - 51.1 %) 26.8 28.4 Monocytes % (1.7 - 9.3 %) 10.1 H 9.9 H Eosinophils % (0 - 5 %) 4.8 5.1 H Basophils % (0.0 - 2.0 %) 0.9 0.6 Absolute Granulocytes (1.4 - 6.5 /CUMM) 2.7 2.4 Absolute Lymphocytes (1.2 - 3.4 /CUMM) 1.3 1.2 Absolute Monocytes (0.10 - 0.60 /CUMM) 0.5 0.4 Absolute Eosinophils (0.0 - 0.7 /CUMM) 0.2 0.2 Absolute Basophils (0.0 - 0.2 /CUMM) 0 0 Platelet Estimate (ADEQUATE) DECREASED Polychromasia 1+ Anisocytosis 1+ PUBS MCHC (33.0 - 37.0 G/DL) 32.5 L 32.5 L
--- NOTE | 2016-07-16 10:52 | SOCIAL WORKER PROG NOTE PSYCH ---
Social Work Progress Note Progress Note Discussed Lilia with Dr. Mckay, progress and discharge planning. Met with Lilia she is anxiosu about going home, but denies SI/HI, no psychosis. She is hopeful, and happy she spoke with her daughter, Anabelle last night. She hadn't talked to her in a year. Lilia stated she is looking forward to connecting with her daughter, Anabelle and her 5 grandchildren (Anabelle's children) who live in [facility]. Lilia stated she hasn't left her home in the past 6yrs, and feels it 's "divine intervention" that she came to [facility], and will now be attending the [facility] and Dialysis. Both her children have kidney disease and she wants to take care of herself. Discussed improtance of staying abstient off Cannibis, and will have random urines. She agrees to this and is so happy that she will be leaving the house for treatment (IOP and Dialysis). [facility]r Dialysis is set up at [address][phone] starts . 07/17/16 2:30pm-6pm. Arranged her [employer] rides to/from [facility] for first week. Her Dialysis days will be , and Sat from 2:30pm-6pm. She can rearrange times/days with [facility] directly if needed (to [facility] with [facility]). Arranged [employer] for the next week for Dialysis. Once Lilia's schedule is known for [facility] [employer] will need to be arranged. She has a ride home from [facility] with [employer] as well.
--- NOTE | 2016-07-16 11:04 | NUR ---
PT IS SCHEDULED FOR DISCHARGE TODAY TO [facility]. SHE DENIES ANY THOUGHTS OF SUICIDE OR SELF HARM. SHE IS COMPLIANT WITH HER [facility] REGIME AND TREATMENT PLAN. SHE EXPECTS TO FOLLOW UP AT [facility] AND WILL HAVE DIALYSIS WITH [facility] IN [place].PT IS GIVEN EDUCATION R/T MANAGING HER DEPRESSION AND ON SUICIDE PREVENTION
[2016-07-16] MEDS ORDERED: NICORELIEF2 MG PO (12:06)
[2016-07-16] MEDS ORDERED: PROCRIT2000 UNIT/ IV (12:07)
[2016-07-16] MEDS ORDERED: LABETALOL HCL100 M1 PO (12:22)
[2016-07-16] MEDS ORDERED: ABILIFY2 MG PO ×2 (12:24→12:25)
[2016-07-16] MEDS ORDERED: PAXIL20 M1 PO (12:24)
[2016-07-16] MEDS ORDERED: NEPHRO-VITE TA0.8 MG PO (12:27)
--- NOTE | 2016-07-16 12:44 | SOCIAL WORKER PROG NOTE PSYCH ---
Social Work Progress Note Progress Note AUTH IS PENDED: RERE SHERMAN [id number] 1960 RERE SHERMAN [id number] Pended Authorization # Client Authorization # Type of Request [id number] CONCURRENT Date of Admission/ Start of Services Requested From Submission Date 07/04/2016 07/15/2016 07/16/2016
--- NOTE | 2016-07-16 13:35 | CP SOUTH PROGRESS NOTE PSYCH ---
Psych (Inpt) Progress Note Progress Note Include the following elements, when applicable: Involvement in the active treatment of the patient with behavioral observations of the patient and the patient's response to the treatment. Review of the ongoing treatment process in the context of the treatment plan. Indication of how multi-disciplinary staff members are carrying out the treatment plan. Plans for future interventions and recommendations for revision of the treatment plan. Liaison with other physicians/providers. Progress Note: PSYCHIATRIST NOTE (DISCHARGE), 07/16/2016: I discussed this patient's progress to date, current mental status, treatment and discharge plans with staff team today in the daily morning ITTM and also met with her again myself in individual session prior to discharging her directly/seamlessly to intake at the [facility] for 12:45pm on date of discharge, 07/16/2016. She will begin 3x/week hemodialysis with [facility], tomorrow 07/17/2016 from 2:30 to 6pm (dialysis Thursday// Thursday). Patient is no longer feeling overwhelmed and unable to cope, is "getting used to " the dialysis treatments and beginning to recognize the benefits of same to her alertness, energy, general well-being. Patient continues to sleep better/well, affect is brighter, mood euthymic, fatigue and drowsiness during the day gone/ resolved and anxiety reduced to a manageable level and notes the low dose Abilify "stopping" racing thoughts. She is more positive and future-oriented with help from an unexpected telephone call last evening from her daughter Anabelle with whom she hasn't spoken "in over a year;" patient is now looking forward to visiting with daughter and 5 children in the near future; she wants to be closer with daughter who also has kidney disease. Currently there is no evidence of suicidal or homicidal ideation, plans, intent or impulses, and patient is well aware of her safety plan should she ever in future come to believe herself at acute risk of self-harm or harming others. Patient is pleased with improvements in her mood, anxiety and functioning she has been able to make on [facility]. (for complete list of medications on date of discharge and amounts prescribed, see the Discharge Summary for this admission in the electronic medical record)
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
== END 2016-07-16 13:06 | DRG 885 ==
LOC: ERH 10:36 → CP SOUTH 07-04 17:10 → ERHI 07-04 17:10 → CP SOUTH 07-04 17:40 → ENRESERV 07-04 18:00 → CP SOUTH 07-04 18:57 → ENPENDDIS 07-16 23:59 → EDPENDDIS 07-16 23:59
PROVIDERS: Emergency Medicine; Internal Medicine Nephrology; Psychiatry & Neurology Addiction Medicine; ADMIT Psychiatry & Neurology Psychiatry
DX: F33.3 Major depressive disorder, recurrent, severe with psychotic symptoms (principal); N18.4 Chronic kidney disease, stage 4 (severe); Z99.2 Dependence on renal dialysis; F43.10 Post-traumatic stress disorder, unspecified; Z72.0 Tobacco use; G89.4 Chronic pain syndrome; Z79.891 Long term (current) use of opiate analgesic
CPT/HCPCS: 04007; 36415; 77001; 80307; 81001; 82436; 86803; 87086; 87147; 87389; 96372; C1751; C1769; G0463; G0480; J0885; J1200; J1630; J1644; J2310; J3101